=== PATIENT | male | born 1950 | race Caucasian/White ===

== ENCOUNTER → 2023-08-10 12:54 | Outpatient (REF) | payer MEDICARE, SELFPAY | LOC: WOUND 12:54 | PROVIDERS: ATTENDING PHYSICIAN Surgery | DX: T81.31XA Disruption of external operation (surgical) wound, not elsewhere classified, initial encounter (principal); L97.112 Non-pressure chronic ulcer of right thigh with fat layer exposed; E11.42 Type 2 diabetes mellitus with diabetic polyneuropathy; N18.9 Chronic kidney disease, unspecified; I50.9 Heart failure, unspecified; I13.0 Hypertensive heart and chronic kidney disease with heart failure and stage 1 through stage 4 chronic kidney disease, or unspecified chronic kidney disease; M79.7 Fibromyalgia; X58.XXXA Exposure to other specified factors, initial encounter; E11.22 Type 2 diabetes mellitus with diabetic chronic kidney disease | CPT/HCPCS: 11042; 99204 ==

== ENCOUNTER → 2023-08-19 09:54 | Outpatient (REF) | payer MEDICARE, SELFPAY | LOC: WOUND 09:54 | PROVIDERS: ATTENDING PHYSICIAN Surgery | DX: T81.31XA Disruption of external operation (surgical) wound, not elsewhere classified, initial encounter (principal); L97.112 Non-pressure chronic ulcer of right thigh with fat layer exposed; E11.9 Type 2 diabetes mellitus without complications; E11.42 Type 2 diabetes mellitus with diabetic polyneuropathy; N18.9 Chronic kidney disease, unspecified; I50.9 Heart failure, unspecified; E08.40 Diabetes mellitus due to underlying condition with diabetic neuropathy, unspecified; I13.0 Hypertensive heart and chronic kidney disease with heart failure and stage 1 through stage 4 chronic kidney disease, or unspecified chronic kidney disease; M79.7 Fibromyalgia; X58.XXXA Exposure to other specified factors, initial encounter; Y83.8 Other surgical procedures as the cause of abnormal reaction of the patient, or of later complication, without mention of misadventure at the time of the procedure | CPT/HCPCS: 11042 ==

== ENCOUNTER → 2023-09-02 10:38 | Outpatient (REF) | payer MEDICARE, SELFPAY | LOC: WOUND 10:38 | PROVIDERS: ATTENDING PHYSICIAN Surgery | DX: T81.31XA Disruption of external operation (surgical) wound, not elsewhere classified, initial encounter (principal); Y83.8 Other surgical procedures as the cause of abnormal reaction of the patient, or of later complication, without mention of misadventure at the time of the procedure; L97.112 Non-pressure chronic ulcer of right thigh with fat layer exposed; E11.9 Type 2 diabetes mellitus without complications; E11.42 Type 2 diabetes mellitus with diabetic polyneuropathy; N18.9 Chronic kidney disease, unspecified; I50.9 Heart failure, unspecified; E08.40 Diabetes mellitus due to underlying condition with diabetic neuropathy, unspecified; I13.0 Hypertensive heart and chronic kidney disease with heart failure and stage 1 through stage 4 chronic kidney disease, or unspecified chronic kidney disease; M79.7 Fibromyalgia | CPT/HCPCS: 11042 ==

== ENCOUNTER → 2023-09-16 11:10 | Outpatient (REF) | payer MEDICARE, SELFPAY | LOC: WOUND 11:10 | PROVIDERS: ATTENDING PHYSICIAN Surgery | DX: T81.31XA Disruption of external operation (surgical) wound, not elsewhere classified, initial encounter (principal); L97.112 Non-pressure chronic ulcer of right thigh with fat layer exposed; E11.42 Type 2 diabetes mellitus with diabetic polyneuropathy; N18.9 Chronic kidney disease, unspecified; I50.9 Heart failure, unspecified; I13.0 Hypertensive heart and chronic kidney disease with heart failure and stage 1 through stage 4 chronic kidney disease, or unspecified chronic kidney disease; M79.7 Fibromyalgia; Y83.8 Other surgical procedures as the cause of abnormal reaction of the patient, or of later complication, without mention of misadventure at the time of the procedure | CPT/HCPCS: 11042 ==

== ENCOUNTER → 2023-10-08 09:34 | Outpatient (REF) | payer MEDICARE, SELFPAY | LOC: WOUND 09:34 | PROVIDERS: ATTENDING PHYSICIAN Surgery | DX: T81.31XA Disruption of external operation (surgical) wound, not elsewhere classified, initial encounter (principal); L97.112 Non-pressure chronic ulcer of right thigh with fat layer exposed; E11.42 Type 2 diabetes mellitus with diabetic polyneuropathy; N18.9 Chronic kidney disease, unspecified; I50.9 Heart failure, unspecified; I13.0 Hypertensive heart and chronic kidney disease with heart failure and stage 1 through stage 4 chronic kidney disease, or unspecified chronic kidney disease; M79.7 Fibromyalgia | CPT/HCPCS: 11042 ==

== ENCOUNTER → 2023-11-04 10:42 | Outpatient (REF) | payer MEDICARE, SELFPAY | LOC: WOUND 10:42 | PROVIDERS: ATTENDING PHYSICIAN Surgery | DX: T81.31XA Disruption of external operation (surgical) wound, not elsewhere classified, initial encounter (principal); Y83.8 Other surgical procedures as the cause of abnormal reaction of the patient, or of later complication, without mention of misadventure at the time of the procedure; L97.112 Non-pressure chronic ulcer of right thigh with fat layer exposed; E11.42 Type 2 diabetes mellitus with diabetic polyneuropathy; N18.9 Chronic kidney disease, unspecified; I50.9 Heart failure, unspecified; I13.0 Hypertensive heart and chronic kidney disease with heart failure and stage 1 through stage 4 chronic kidney disease, or unspecified chronic kidney disease; M79.7 Fibromyalgia; E11.22 Type 2 diabetes mellitus with diabetic chronic kidney disease | CPT/HCPCS: 11042 ==

== ENCOUNTER → 2023-12-07 10:05 | Outpatient (REF) | payer MEDICARE, SELFPAY | LOC: WOUND 10:05 | PROVIDERS: ATTENDING PHYSICIAN Surgery | DX: T81.31XA Disruption of external operation (surgical) wound, not elsewhere classified, initial encounter (principal); L97.112 Non-pressure chronic ulcer of right thigh with fat layer exposed; N18.9 Chronic kidney disease, unspecified; I50.9 Heart failure, unspecified; I13.0 Hypertensive heart and chronic kidney disease with heart failure and stage 1 through stage 4 chronic kidney disease, or unspecified chronic kidney disease; M79.7 Fibromyalgia; Y83.8 Other surgical procedures as the cause of abnormal reaction of the patient, or of later complication, without mention of misadventure at the time of the procedure; E11.29 Type 2 diabetes mellitus with other diabetic kidney complication; E11.42 Type 2 diabetes mellitus with diabetic polyneuropathy | CPT/HCPCS: 99213 ==

== ENCOUNTER → 2024-04-05 12:38 | Outpatient (REF) | payer MEDICARE, OTHER, SELFPAY | LOC: DHVS 12:38 | PROVIDERS: ATTENDING PHYSICIAN Registered Nurse; FAMILY PHYSICIAN Internal Medicine | DX: I73.9 Peripheral vascular disease, unspecified (principal); Z89.619 Acquired absence of unspecified leg above knee | CPT/HCPCS: 76770; 93922; 93925 ==

== ENCOUNTER → 2024-06-06 11:00 | Outpatient (REF) | payer MEDICARE, OTHER, SELFPAY | LOC: RCS 11:00 | PROVIDERS: ATTENDING PHYSICIAN Internal Medicine Cardiovascular Disease; FAMILY PHYSICIAN Internal Medicine | DX: I50.9 Heart failure, unspecified (principal) | CPT/HCPCS: 93306 ==

== ENCOUNTER → 2024-09-29 12:42 | Outpatient (REF) | payer MEDICARE, OTHER, SELFPAY | LOC: RAD 12:42 | PROVIDERS: ATTENDING PHYSICIAN Registered Nurse | DX: I73.9 Peripheral vascular disease, unspecified (principal); Z89.619 Acquired absence of unspecified leg above knee | CPT/HCPCS: 93922; 93925 ==

== ENCOUNTER 2024-11-10 23:07 | Inpatient (IN) | payer MEDICARE, OTHER, SELFPAY ==
[2024-11-10 19:22] VITALS: BP 101/48; BMI 37.9
[2024-11-10 20:00] VITALS: BP 96/46
[2024-11-10 20:00] LABS: % Basophils 0.3 % (0-2); % Eosinophils 0.2 % (0-6); % Immature Granulocytes 0.5 % (0-0.5); % Lymphocytes 6.6 % (20.5-51.1); % Monocytes 11.2 % (1.7-9.3); % Neutrophils 81.2 % (42.2-75.2); Absolute Immature Granulocytes 0.1 10^3/uL (0-0.05); Absolute Lymphocytes 0.9 10^3/uL (1.2-3.4); Absolute Monocytes 1.5 10^3/uL (0.1-0.6); Hematocrit 37.8 % (39.0-52.0); Mean Corp Hgb Conc. 34.4 g/dL (33.0-37.0); Mean Corpuscular Hgb 26.8 pg (27.0-31.0); Mean Corpuscular Volume 77.9 fL (80.0-94.0); Mean Platelet Volume 9.6 fL (7.4-10.4); Nucleated Red Blood Cells % 0 % (-); Platelet Count 134 10^3/uL (130-400); Red Blood Cell Count 4.85 10^6/uL (4.70-6.10); Red Cell Dist. Width 15.9 % (11.5-14.5); White Blood Cell Count 13.5 10^3/uL (4.8-10.8)
--- NOTE | 2024-11-10 20:00 | ED.GENMED ---
History of Present Illness
General
Chief Complaint: Fever
Source: patient and records
Time Seen by Provider: 11/10/24 19:47
History of Present Illness
History of Present Illness:
This patient is a 74-year-old male who presents with reported fever and weakness since last night. The patient states that he feels generally weak, and does note a new cough. Of note, patient has mild hypoxia here relieved with nasal cannula. He
denies sore throat, rhinorrhea. He does note that he has had poor appetite today, and had vomiting early this morning. He denies specific abdominal pain, back pain, neck pain, photophobia. He was noted to be incontinent of stool upon arrival
here, no blood noted. Patient denies urinary symptoms, dyspnea, chest pain, headache. He does note that he gets cramps in the left posterior thigh area, comes and goes without specific provoking or relieving factors.
Past History
Past History
ED Past Medical History: Other (COPD, hypercholesterolemia, diabetes)
ED Past Surgical History: Other (Right AKA)
Social History
Tobacco: Non-smoker
Alcohol: None
Drug: None
Living: long-term
Phy Exam
Physical Exam
Physical Exam:
GENERAL: Alert , in no apparent distress, very hard of hearing
EYE: pupils equal and reactive, no objective photophobia
NECK: Supple, no significant adenopathy.
ENT: o/p clr, mm dry
CARDIAC: Regular rate and rhythm .
LUNGS: Equal but decreased breath sounds bilaterally, no acute respiratory distress, no wheezes/rales/rhonchi noted
ABDOMEN: Soft, without focal tenderness, no r/g, no cvat
NEUROLOGICAL: Alert and oriented, no focal neuro deficits
SKIN: Warm and dry, skin intact.
MUSCULOSKELETAL: Left lower extremity 1+ edema, well perfused. Right AKA
PSYCH: Normal and appropriate interaction.
Sepsis
Sepsis Screening
Sepsis Assessment: Sepsis
Sepsis Screen
Sepsis Screen: Sepsis
Date: 11/16/24
Time: 09:08
Course
Orders/Labs/Results
Orders:
Orders
11/10/24 Breakfast
1800 calorie (15 carb) Diabetic
At Your Request: Limited Participation
Does patient need a safe tray?: No
11/10/24 19:49
Cardiac Monitoring- Treatment ONCE
Pulse Ox/cont/shift [RESP] Urgent
Quantity: 1
11/10/24 19:50
Electrocardiogram (*1) Urgent
Reason for Study: Other
Other Reason for Exam: sepsis
EKG- Treatment ONCE
CR Chest - 2 Views Urgent
Comment:
Reason For Exam: fever
11/10/24 19:53
Complete Blood Count/With Diff Urgent
Comprehensive Metabolic Panel Urgent
Lactic Acid Q4H
Comment: CANCEL 2nd LACTIC ACID IF 1st LACTIC ACID IS LESS THAN 2
NT-proBNP Urgent
Comment: ADD ON
Troponin I Urgent
Blood Culture Q30M
TALI Source: Blood/Venous
Specimen Description:
11/10/24 19:59
0.9% Sodium Chloride 500 ml [Nss] 500 ml IV BOLUS
11/10/24 20:33
COVID-19 Antigen Urgent
Source: Nasal Swab
Urinalysis Reflex To Culture Urgent
Date Specimen was Collected: 11/10/24
Time Specimen was Collected: 20:31
Urine Microscopic Reflex Cult Urgent
Blood Culture Q30M
TALI Source: Blood/Venous
Specimen Description:
Influenza A+B Rapid Molecular Urgent
TALI Source: Nasal Swab
Specimen Description:
Urine Culture Urgent
TALI Source: U
Specimen Description:
Date Specimen was Collected: 11/10/24
Time Specimen was Collected: 20:31
11/10/24 20:43
Add On- LAB Urgent
Tests Added?: BNP
11/10/24 20:49
Acetaminophen [Tylenol] 650 mg .ROUTE .STK-MED ONE
11/10/24 20:50
Acetaminophen [Tylenol] 650 mg PO NOW STA
11/10/24 21:33
CefTRIAXone [Rocephin] 1,000 mg IV NOW STA
US Kidneys and US Bladder [US Renal With Bladder] Urgent
Comment:
Reason For Exam: UTI, N/V
11/10/24 22:19
Potassium Chloride 10% Elixir [KCl Elixir] 40 meq PO NOW STA
11/10/24 22:24
Admit/Transfer Patient As Directed
Co-Sign Provider:
Level of Care: Inpatient admission
Assign to:: Telemetry
Physician / Group: juana lima
Diagnosis: urosepsis
Reason for Telemetry: Arrhythmia
Date to Stop Telemetry: 11/13/24
Time to Stop Telemetry: 11:00
Reason for Hospitalization: urosepsis
Expected length of stay greater than two midnights?: Yes
ELOS- Estimated Length of Stay in days: 3
I certify the patient meets the requirements for IP care: Yes
PRN Pain Medication Management As Directed
May give lesser potent ordered pain med per pt: Yes
preference::
Protocol:: Medication orders for pain may be administered in a
manner that supports deferring to patient preference
when the pt is:
- Requesting an ordered lesser potent pain medication.
Least to most potent pain medications are defined
as: acetaminophen < NSAID < tramadol < opioids
(morphine, oxycodone, hydromorphone).
- Requesting a lesser dose of the same medication IF
ORDERED.
- Requesting a less intrusive route of administration
if both routes are prescribed by the provider (PO <
IV).
11/10/24 22:26
Code Status As Directed
Resuscitation Status: Full Code
11/10/24 23:00
Flush (0.9% Sodium Chloride) [Flush (Nss)] See Dose Instructions IV PER PROTOCOL
11/10/24 23:09
0.9% Sodium Chloride 1000 ml [Nss] 1,000 ml IV 60 mls/hr
Acetaminophen [Tylenol] 650 mg PO Q4HPRN PRN
Bisacodyl [Dulcolax] 10 mg RECTAL [id number] PRN
Dextrose 50%-Water [Dextrose 50% Syringe] 12.5 grams IV [id number] PRN
Docusate W/Senna [Senokot-S] 1 tablet PO BIDPRN PRN
Glucagon [GlucaGen] 1 mg IM PRN PRN
Ipratropium/Albuterol Sulfate [Duoneb] 3 ml INH R Q4HPRN PRN
Polyethylene Glycol Powder [Miralax] 17 grams PO DAILYPRN PRN
11/10/24 23:09
Activity As Directed
Activity Level: As Tolerated
Bedside Glucose Monitoring As Directed
Frequency: AC&HS
Additional Instructions:: Change to q6h if pt on TPN, tube feeding or not eating
Intake/ Output As Directed
Frequency: Per unit guidelines
Vital Signs As Directed
Frequency: Per unit guidelines
Weight As Directed
Frequency: Daily
O2 Therapy [RESP] Routine
Titrate/Wean O2 to maintain O2 sat greater than (%): 92
DX Deep Vein Thrombosis Video Routine
11/10/24 23:25
Oxycodone [Roxicodone] 5 mg PO Q4HPRN PRN
11/11/24 07:10
Basic Metabolic Panel IN AM
Complete Blood Count/No Diff IN AM
Glycohemoglobin (HgbA1c) IN AM
11/11/24 07:30
Insulin Aspart Corrective Low [Novolog Flexpen-Low Resistance] See Protocol SC AC
11/11/24 08:00
Aspirin Low Dose EC [Aspir Low (Enteric Coated)] 81 mg PO DAILY
Budesonide/Formoterol 160/4.5 [Symbicort 160/4.5 Mcg Inhaler] 2 puff INH R DAILY
Cilostazol [Pletal] 100 mg PO BID
Duloxetine Delayed Release [Cymbalta Delayed Release] 30 mg PO BID
Famotidine [Pepcid] 20 mg PO DAILY
Gabapentin [Neurontin] 300 mg PO TID
Heparin 5,000 units SC Q12
Tamsulosin [Flomax] 0.4 mg PO DAILY
lubiprostone [Amitiza] See Dose Instructions PO BID
11/11/24 22:00
Atorvastatin [Lipitor] 80 mg PO HS
CefTRIAXone [Rocephin] 1,000 mg IV Q24H
Melatonin 6 mg PO HS
11/13/24 11:00
DC Protocol for Telemetry ONCE
Abnormal Lab Results
11/10/24 11/10/24
19:53 20:33
WBC 13.5 H 10^3/uL
(4.8-10.8)
Hct 37.8 L %
(39.0-52.0)
MCV 77.9 L fL
(80.0-94.0)
MCH 26.8 L pg
(27.0-31.0)
RDW 15.9 H %
(11.5-14.5)
Abs Immat Gran (auto) 0.1 H 10^3/uL
(0-0.05)
Absolute Neuts (auto) 11.0 H 10^3/uL
(1.4-6.5)
Absolute Lymphs (auto) 0.9 L 10^3/uL
(1.2-3.4)
Absolute Monos (auto) 1.5 H 10^3/uL
(0.1-0.6)
Neutrophils % 81.2 H %
(42.2-75.2)
Lymphocytes % 6.6 L %
(20.5-51.1)
Monocytes % 11.2 H %
(1.7-9.3)
Sodium 134 L mmol/L
(135-145)
Potassium 3.4 L mmol/L
(3.5-5.1)
BUN 32 H mg/dl
(9-20)
Creatinine 1.9 H mg/dL
(0.7-1.3)
Glucose 135 H mg/dl
(70-99)
Ur Occult Blood Reflex 4+ A
(Negative)
Leukocyte Esterase Rfl 3+ A
(Negative)
Urine WBC (Reflex) >100 A /HPF
(0-5)
Urine Bacteria (Reflex) Many A
(Negative)
Urine Albumin (Reflex) 3+ A
(Neg - Trace)
11/10/24 19:53
11/10/24 19:53
Vital Signs
Initial and Last Documented VS:
Initial Vital Signs
Temp Pulse Resp BP Pulse Ox
102 F H 97 24 101/48 89
11/10/24 19:22 11/10/24 19:22 11/10/24 19:22 11/10/24 19:22 11/10/24 19:22
Last Documented Vital Signs
Temp Pulse Resp BP Pulse Ox
98.7 F 92 19 140/77 95
11/15/24 11:00 11/15/24 11:00 11/15/24 11:00 11/15/24 11:00 11/15/24 11:00
*Pulse Oximetry
SaO2: 93
Nasal Cannula flow liters per minute: 1
Oxygen Mode of Delivery: Room air
*Critical Care Note
Total Time (30-74mins, 75-104mins- exclusive of procedures): Not Applicable
Update Note
Update Note:
Patient presents to the Emergency Department with ___fever weakness cough vomiting
Number and Complexity of Problems Addressed at the Encounter
� Chronic conditions affecting care:
� Acute Exacerbation and/or Progression of Chronic Illness:
� Differential Diagnosis includes: But not limited to COVID, flu, pneumonia, UTI, etc. etc. etc.
Amount and/or Complexity of Data to be Reviewed and Analyzed
� I performed an independent evaluation of and my interpretation is:
EKG: Read by me, normal sinus rhythm, LAD, nonspecific T wave flattening, no acute ischemia
CT:
Xrays: Increased vascular interstitial markings mixed with diffuse ground-glass opacity in both lungs suggesting MILD INTERSTITIAL and ALVEOLAR CARDIOGENIC PULMONARY EDEMA. Viral or atypical bacterial pneumonia is considered
less likely.
2. Mild cardiomegaly.
3. Mildly decreased bilateral lung volumes.
Laboratory Studies: Leukocytosis, renal insufficiency no prior for comparison, UTI
Other:
� Review of other/old records reveals: None available
� Clinical information was obtained by an independent historian:
� Prescriptions/Medications Considered but not given:
� Further testing considered but not performed:
Risk of Complications and/or Morbidity or Mortality of Patient Management
� Social determinants of health affecting care:
� Discussion with other providers (PCP, Hospitalists, Consultants, etc):
� Escalation of care including admission/observation vs risk of discharge considered: 9:35 PM patient with fever, tachycardia, UTI meeting sepsis criteria. Blood pressure stable. Ultrasound ordered to rule out obstruction
although patient does not describe flank pain, etc. Mild hypoxia with the possibility of pulmonary edema via chest x-ray, will limit IV fluids in the context of patient's heart failure. BNP pending. Case to be discussed with hospitalist for
admission
ED Attending Note
-
Portions of this chart may have been created with voice recognition software.� Occasional wrong word or��sound alike� substitutions may have occurred due to the inherent limitations of voice recognition software.
Discharge Plan
Departure
Patient Disposition: Admit
Date of Disposition: 11/10/24
Time of Disposition: 21:37
Presentation/result/management discussed w/ accepting MD/DO: Hospitalist
Condition: Fair
Discharge Problem:
urosepsis
Interventions
Interventions:
*Risk Screen - Suicide Last Done: 11/10/24 19:22
*General Assessment Last Done: 11/10/24 19:22
*Neglect/Abuse Screening Last Done: 11/10/24 19:22
*ED- Fall Risk Assessment Last Done: 11/10/24 19:22
*ED COVID-19 Vaccine History Last Done: 11/10/24 19:22
*Nursing Disposition Last Done: 11/10/24 22:53
ED- Neurological Assessment Last Done: 11/10/24 20:52
ED-Skin Assessment Last Done: 11/10/24 20:52
Discharge Date and Time
Discharge Date/Time: 11/10/24 23:00
[2024-11-10] MEDS: NSS 500 IV (20:10)
[2024-11-10 20:11] LABS: Lactic Acid 1.4 mmol/L (0.7-2.0)
[2024-11-10 20:13] LABS: ALT (SGPT) 20 U/L (0-50); AST (SGOT) 31 U/L (17-59); Albumin 3.7 g/dl (3.5-5.0); Alkaline Phosphatase 77 U/L (38-126); Blood Urea Nitrogen 32 mg/dl (9-20); Calcium 9.1 mg/dl (8.4-10.2); Carbon Dioxide 23 mmol/L (22-30); Chloride 104 mmol/L (98-107); Estimated Creatinine Clearance 45 ml/min; Glucose 135 mg/dl (70-99); Potassium 3.4 mmol/L (3.5-5.1); Sodium 134 mmol/L (135-145); Total Bilirubin 1.3 mg/dl (0.2-1.3); Total Protein 6.5 g/dl (6.3-8.2); eGFR 36.33
[2024-11-10 20:25] LABS: Troponin I 0.028 ng/ml
[2024-11-10 20:44] LABS: Urine Albumin 3+ (Neg - Trace); Urine Bilirubin Negative (Negative); Urine Character Clear (Clear); Urine Color Yellow; Urine Glucose Negative (Negative); Urine Ketone Negative (Negative); Urine Leukocyte 3+ (Negative); Urine Nitrite Negative (Negative); Urine Occult Blood 4+ (Negative); Urine Specific Gravity 1.015 (<1.030); Urine Urobilinogen 1+ (Neg - 1+)
[2024-11-10] MEDS: TYLENOL 650 MG PO (20:50)
[2024-11-10 21:00] VITALS: BP 118/61
[2024-11-10 21:03] LABS: COVID-19 Antigen Negative (Negative)
[2024-11-10 21:16] LABS: Urine White Cell >100 /HPF (0-5)
[2024-11-10 21:17] LABS: Urine Bacteria Many (Negative)
[2024-11-10 21:33] LABS: NT-proBNP 1330 pg/ml
[2024-11-10] MEDS: ROCEPHIN 1000 MG IV (21:36)
[2024-11-10 22:00] VITALS: BP 113/61
--- NOTE | 2024-11-10 22:00 | W.PN.UPDATE ---
Update Note
Progress Note Update
This note serves as an addendum to the H&P by residential team leader MIN Sophia BRADSHAW
HPI
74M Diabetic, HTN, COPD seen at ER for fever and weakness since last night.
- he feels generally weak, and new cough
- mild hypoxia here relieved with nasal cannula.
- poor appetite today
- vomiting early this morning.
- incontinent of stool upon arrival here, no blood noted.
ROS
- denies sore throat, rhinorrhea.
- denies specific abdominal pain, back pain, neck pain, photophobia.
- incontinent of stool upon arrival here, no blood noted.
- denies urinary symptoms, dyspnea, chest pain, headache.
PHX
Reviewed VS:
Significant VS
11/10/24
19:22
Temp 102 F H
Pulse 97
Resp Rate 24
Blood pressure 101/48
SaO2 89
PE
Morbidly obese
Gen: not toxic , T 102
HEENT: very [place]
Neck: supple
Lungs: CTA
Cor: RRR
Abdomen: Soft, without focal tenderness,
PIPE LINER: NFND
MS: no edema , AKA with well healed stump
Psych: apprpriate
Significant admission Labs and UA
11/10/24
19:53
WBC 13.5 H
Sodium 134 L
Potassium 3.4 L
BUN 32 H
Creatinine 1.9 H
eGFR 36.33
Troponin I 0.028
Mar-P-Cponltausrl Pept 1330
11/10/24
20:33
Urine Nitrite (Reflex) Negative
Leukocyte Esterase Rfl 3+ A
Urine Bacteria (Reflex) Many A
CXR
1. Increased vascular interstitial markings mixed with diffuse ground-glass opacity in both lungs suggesting MILD INTERSTITIAL and ALVEOLAR CARDIOGENIC PULMONARY EDEMA.
Viral or atypical bacterial pneumonia is considered less likely.
2. Mild cardiomegaly.
3. Mildly decreased bilateral lung volumes.
NO PRIOR hospitalist admission:
- Obtain records for PCP
ASSESSMENT & PLAN
Sepsis due to UTI
Relative hypotension due to sepsis
Associated hi grade fever, Leucocytosis and elevated pro BNP
- Pending US KUB
- s/p septic IN NS 1 L then 60/H NS
- agree with empiric IV CFTZ
- Hold Norvasc and PO Lasix for now due to relative hypotension due to sepsis
- f/u UCx and BCx
- FU VSS
CXR suggest mild interstitial and Pul edema
Mild Hypoxic RI on NCO2 support
HX CHF - type unknown
Elevated pro BNP
- ECHO in AM
- Hold PO Lasix due to relative hypotension due to sepsis
- daily Wt
BRIAN
HX CKD unspecified
- IVF and f/u Cr
- Pending US KUB
- Hold PO Lasix for now due to relative hypotension due to sepsis
IDDM with Neuropathy
- c/w 50 % of RED HAT LINUX ADMINISTRATOR Lantus
- add ISS low
- c/w Gabapentin
Suspect Prior HX CAD per Med List
- HLD
- c/w ASA, Cilostazol
- on hi intensity atorvastatin
S/p AKA ? PAD
HX COPD
- c/w RED HAT LINUX ADMINISTRATOR Symbicort
HX GERD
- switch to PO H2B in place of PO PPI due to risk of CDAD
Morbidly obese
Suspect PEGGY
DVT Px: SQH
Full code
IP TLM
--- NOTE | 2024-11-10 22:04 | HPS.HSE ---
Family Physician
-
Family Physician: NOT KNOW UNKNOWN - PT DOES
Chief Complaint
-
fever
History of Present Illness
74-year-old male with past medical history with COPD, hyperlipidemia, type 2 diabetes CHF, peripheral artery disease presented to us with fever and generalized weakness since last night, usp.patient stated he vomited once today .he has been
coughing.denied chest pain or short of breath. Patient denied any headache, dizzy or syncope. Denied abdominal pain or diarrhea. Patient denied dysuria hematuria
Upon arrival he was noted in urosepsis as well as pulmonary edema. Patient received a dose of ceftriaxone Tylenol, normal saline in ER. Admitted for further management
Medical History
Past Medical History
Past Medical History: Reports Other
Additional Past Medical History:
COPD
- Cholesteremia
Diabetes
Anemia
Aphasia
COPD
Neuropathy fibromyalgia
Anxiety
Morbid obesity
Depression
CKD
Hypertension GERD
Heart failure
Generalized weakness
Peripheral vascular disease
Urinary tract infection
Past Surgical History: Reports Other
Additional Past Surgical History:
Right AKA
Social History
Tobacco: Non-smoker
Alcohol: None
Drug: None
Living: Longterm
Family History
Family History: Not pertinent
Allergies / Home Medications
Allergies reflects when Allergies were last updated in [facility].
Home Medications with original date entered in [facility]
Allergy/Medication List:
Allergies
Allergy/AdvReac Type Severity Reaction Status Date / Time
No Known Allergies Allergy Unverified 11/10/24 20:06
Home Medications
acetaminophen 325 mg tablet (Tylenol) 325 mg PO Q8HPRN PRN mild pain 11/10/24
acetaminophen 325 mg tablet (Tylenol) 650 mg PO Q4H PRN mild pain/temp>100F 11/10/24
acetaminophen 325 mg tablet (Tylenol) 650 mg PO Q6HPRN PRN mild pain 11/10/24
albuterol sulfate 90 mcg/actuation aerosol inhaler 2 puff inhalation R Q4HPRN PRN sob/wheezing 11/10/24
amlodipine 10 mg tablet 10 mg PO DAILY 11/10/24
aspirin 81 mg tablet,delayed release 81 mg PO DAILY 11/10/24
atorvastatin 80 mg tablet 80 mg PO HS 11/10/24
bisacodyl 10 mg rectal suppository (Dulcolax (bisacodyl)) 10 mg SC DAILY PRN if no BM by morning of 4th day 11/10/24
budesonide-formoterol HFA 160 mcg-4.5 mcg/actuation aerosol inhaler (Symbicort) 2 puff inhalation R DAILY 11/10/24
cilostazol 100 mg tablet 100 mg PO BID 11/10/24
duloxetine 30 mg capsule,delayed release 30 mg PO BID 11/10/24
furosemide 40 mg tablet 40 mg PO DAILY 11/10/24
gabapentin 600 mg tablet 600 mg PO TID 11/10/24
guaifenesin 100 mg/5 mL oral liquid 200 mg PO Q6HPRN PRN cough 11/10/24
insulin aspart U-100 100 unit/mL subcutaneous solution (Novolog U-100 Insulin aspart) 1 sliding scale dose SC DIRECTED 11/10/24
insulin glargine 100 unit/mL (3 mL) subcutaneous pen (Lantus Solostar U-100 Insulin) 18 unit SC HS 11/10/24
loperamide 2 mg capsule 2 mg PO DIRECTED PRN loose stool 11/10/24
loratadine 10 mg tablet 10 mg PO DAILY 11/10/24
lubiprostone 8 mcg capsule (Amitiza) 8 mcg PO BID 11/10/24
magnesium hydroxide 400 mg/5 mL oral suspension (Milk of Magnesia) 30 ml PO [id number] PRN if no BM in 3 days 11/10/24
melatonin 3 mg tablet 6 mg PO HS 11/10/24
metoprolol succinate 50 mg tablet,extended release 24 hr 50 mg PO DAILY 11/10/24
nitroglycerin 0.3 mg sublingual tablet 0.3 mg sublingual Q5-15M PRN chest pain 11/10/24
omeprazole 20 mg tablet,delayed release 20 mg PO DAILY 11/10/24
ondansetron HCl 4 mg tablet 4 mg PO Q8H PRN nausea/vomiting 11/10/24
oxycodone 5 mg capsule 5 mg PO Q4H PRN moderate-severe pain 11/10/24
tamsulosin 0.4 mg capsule (Flomax) 0.4 mg PO DAILY 11/10/24
therapeutic multivitamin 1 tab PO DAILY 11/10/24
tirzepatide 2.5 mg/0.5 mL subcutaneous pen injector (Mounjaro) 2.5 mg SC WE 11/10/24
urea 10 % topical cream 1 applic topical HS apply to LLE 11/10/24
Review of Systems
-
Constitutional: Reports Fever, Fatigue and Chills
EENT: Reports No Symptoms
Respiratory: Reports Cough
Cardiac: Reports No Symptoms
Abdomen/GI: Reports No Symptoms
: Reports No Symptoms
Musculoskeletal: Reports No Symptoms
Skin: Reports No Symptoms
Neurological: Reports No Symptoms
Endocrine: Reports No Symptoms
Hematologic/Lymphatic: Reports No Symptoms
Psych: Reports No Symptoms
Physical Exam
Vital Signs
Vital Signs
Temp Pulse Resp BP Pulse Ox
102 F H 89 31 113/61 95
11/10/24 19:22 11/10/24 22:00 11/10/24 22:00 11/10/24 22:00 11/10/24 22:00
Physical Exam
General: Well Developed, Well Nourished and No Apparent Distress
HEENT: NormoCephalic, Moist mucous membranes and Atraumatic
Respiratory: Clear
Cardiac: S1/S2 and Regular Rhythm; No Murmur or Rub
GI: Soft, Non Tender, Non Distended and Normal Bowel Sounds; No Organomegaly
Rectal: Deferred by Provider
Musculoskeletal: No Clubbing, No Cyanosis and No Edema
Skin: Other; No Rash
Neuro: AO x 3 and Nonfocal/grossly intact
Psych: Calm
Laboratory Results
-
11/10/24 19:53
11/10/24 19:53
Laboratory Results
Lactic Acid 1.4 mmol/L (0.7-2.0) 11/10/24 19:53
Total Bilirubin 1.3 mg/dl (0.2-1.3) 11/10/24:53
AST 31 U/L (17-59) 11/10/24:53
ALT 20 U/L (0-50) 11/10/24:53
Alkaline Phosphatase 77 U/L (38-126) 11/10/24:53
Troponin I 0.028 ng/ml 11/10/24 19:53
Data Reviewed
-
Diagnostic Radiology: Report Reviewed by me
Lab Data: Labs Reviewed by me
Impression/Plan
-
# Urosepsis
- Sepsis as evidenced by WBC 13.5, temp 102
- Ceftriaxone continued
- Blood and urine culture pending
- Tylenol as needed for fever or pain
- Fluids continued
# Acute hypoxic respiratory failure likely secondary to pulmonary edema
#possible COPD exacerbation
- Chest x-ray with impression increased vascular interstitial markings mixed with diffuse ground-glass opacity in both lungs suggesting MILD INTERSTITIAL and ALVEOLAR CARDIOGENIC PULMONARY EDEMA. Viral or atypical bacterial pneumonia is considered
less likely. Mild cardiomegaly.
- Continue supplemental oxygen to keep sat greater than 95, wean as tolerated
- Hold Lasix
-strict I &O, daily weight
-nebs continued
# Hypokalemia likely from nausea and vomiting
- K3.4
- Oral KCl
- BMP in a.m.
# CKD stage specified
- Creatinine 1.9
- Ultrasound of kidneys pending
- Continue to monitor
# Essential hypertension
- Patient hypotensive in ER
- Will hold Lasix and Norvasc and metoprolol
# GERD
- PPI continue
# Hyperlipidemia
- Statin continued
# History of peripheral artery disease
# History of right AKA
- Cilostazol continued
# Depression/anxiety
- Duloxetine continued
# Peripheral neuropathy
- Gabapentin continued
- Oxycodone continue
# BPH
- Flomax continue
# Type 2 diabetes
- Sliding scale
- Glargine 10 units at bedtime
# DVT prophylaxis
- Heparin subcu
# CODE STATUS
Full code-
[2024-11-10 23:15] VITALS: BP 122/53
[2024-11-10 23:16] VITALS: BMI 37.3
[2024-11-10 23:29] LABS: Glucose - Point of Care 122 mg/dl (70-99)
[2024-11-10] MEDS: NSS 1000 IV (23:31)
[2024-11-10] MEDS: LANTUS 0.09 UNITS SC (23:32)
[2024-11-11] VITALS (12 sets, daily range): BP systolic 100–148; BP diastolic 50–86; PULSE 85; O2SAT 98; BMI 37.3
[2024-11-11] MEDS: KCL 270 MEQ IV (00:47)
--- NOTE | 2024-11-11 00:55 | PTCARENOTE ---
Pt received from ED via stretcher. Pulled over to bed w/o incident. AAOx3, forgetful, NOORVIK, very drowsy. Tele - SR. Unable to participate w/admission questions, information obtained from NH transfer sheet. Full physical assessment documented
(refer to worklist). Oriented to surroundings, bed alarm place for safety. Sacrum pink, excoriation/redness to groin/scrotum, small abrasion to LLE w/PVDish discoloration. Pt ordered KCl elixir. Unable to stay awake long enough to drink safely.
AUXILIARY POWER EQUIPMENT OPERATOR covering house contacted, electronic orders received for IV KCl (refer to MAR). #18 RAC w/NSS at 60 mL/hr infusing w/o complication. Call moi w/in reach, safe environment maintained.
[2024-11-11] MEDS: OFIRMEV 100 IV (03:49)
--- NOTE | 2024-11-11 04:41 | PTCARENOTE ---
Pt w/temp 102.1. Unable to stay awake to take PO tylenol. CLINICAL QUALITY MANAGER covering house contacted, electronic orders received for IV ofirmev (refer to JUL). Repeat temp 103.0. Ice packs place under bilateral axilla, electronic order obtained.
--- NOTE | 2024-11-11 05:54 | PTCARENOTE ---
Pt w/no void. Bladder scan = 555 mL. CHEMICAL PROCESSING SUPERVISOR covering contacted, electronic orders received for bladder scan/straight cath per algorithm. Straight cathed using sterile technique for 600 mL tea colored, cloudy urine. Pt tolerated.
[2024-11-11 07:16] LABS: Glucose - Point of Care 99 mg/dl (70-99)
--- NOTE | 2024-11-11 07:40 | W.PN.HOSP.TC ---
Today's Communication/Plan
-
Monitor closely for any respiratory deterioration -- low threshold to stop IV fluids (given for diarrhea, soft BPs and significant infection) since patient also has CHF
Continue antibiotics
Continue as needed Tylenol
Continue to monitor in IMU
Assessment / Plan
Assessment / Plan
Physical Exam
General: Well Developed, Well Nourished and No Apparent Distress
HEENT: NormoCephalic, Moist mucous membranes and Atraumatic
Respiratory: Clear
Cardiac: S1/S2 and Regular Rhythm; No Murmur or Rub
GI: Soft, Non Tender, Non Distended and Normal Bowel Sounds; No Organomegaly
Rectal: Deferred by Provider
Musculoskeletal: No Clubbing, No Cyanosis and No Edema
Skin: Other; No Rash
Neuro: AO x 3 and Nonfocal/grossly intact
Psych: Calm
Assessment/Plan
74-year-old male from assisted with past medical history with hyperlipidemia, type 2 diabetes mellitus, CHF and peripheral artery disease, presented with fever and generalized weakness since last night, he also reported vomiting and diarrhea.
#Suspected Complicated UTI
#Sepsis
#Leukocytosis
#Fever
#Gram Negative Bacilli Bacteremia Suspected from Complicated UTI
#Vomiting and Diarrhea
- Transferred to IMU from tele given patient's urosepsis, bacteremia, CHF, soft blood pressures and obesity with possible PEGGY
- Ceftriaxone changed to Cefepime given gram negative bacteremia
- Continue to follow blood cultures
- Follow urine culture
- Continue IV fluids
# Acute hypoxic respiratory failure with RML pneumonia in the setting of Bacteremia and Sepsis
# Vomiting -- possible Aspiration Pneumonia
- Transferred to IMU from tele given patient's urosepsis, bacteremia, CHF, soft blood pressures and obesity with possible PEGGY
- Chest x-ray with possible pulmonary edema as well as pneumonia
- Continue supplemental oxygen to keep sat greater than 90, wean as tolerated
- Hold Lasix given sepsis and soft blood pressures
- Strict I &O, daily weight
-nebs continued
- Patient at risk of worsening respiratory failure requiring noninvasive positive pressure ventilation and maybe intubation (morbid obesity with suspected sleep disordered breathing, with pneumonia, UTI, bacteremia and pulmonary edema)
# Suspected Acute HFpEF
- BNP elevated at 1330, chest x-ray suggestive of pulmonary edema
- Since patient has blood pressures on the lower side, holding off on diuretics.
- Avoid excessive IV fluids
- Echo ordered
- Monitor closely for any respiratory deterioration
#Generalized Weakness
- Suspected secondary to sepsis/bacteremia
# PEGGY
# Concern for Obesity Hypoventilation Syndrome
# COPD is unlikely -- never smoker
# Concern for Asthma
- Patient says he had evaluation for sleep apnea outpatient, but was never on CPAP
- Continue Symbicort and PRN albuterol
- Continue to monitor
#Liquid stools
#Mild Abdominal Pain
- Continue IV fluids but be careful with too much IV fluids given CHF
- Check stool studies
- Follow-up abdominal x-ray
# Hypokalemia likely from vomiting/diarrhea
- Supplement potassium
- Recheck BMP this evening
# BRIAN vs. CKD stage unspecified
- Creatinine 1.9
- Ultrasound of kidneys: no evidence for hydronephrosis in either kidney, moderate chronic bilateral renal disease, mild to moderate diffuse thickening and trabeculation of the urinary bladder wall (either secondary to cystitis or
chronic urinary bladder outlet obstruction).
- Continue to monitor
# Essential hypertension
- Patient hypotensive in ER
- Continue to hold Lasix, Norvasc and Metoprolol
# GERD
- PPI continue
# Hyperlipidemia
- Statin continued
# History of peripheral artery disease
# Right AKA
- Continue Aspirin and High-Intensity Statin
- Cilostazol continued
# Depression/anxiety
- Duloxetine continued
# Peripheral neuropathy
- Gabapentin continued
- Oxycodone continue
# BPH
- Flomax continued
# Type 2 diabetes mellitus
- Low dose Sliding scale
- Glargine resumed at less than home dose
#Morbid Obesity
DVT Prophylaxis: Heparin SUBQ
CODE STATUS: Full Code
Bacteremia and patient at risk of worsening respiratory failure requiring noninvasive positive pressure ventilation and maybe intubation (morbid obesity with suspected sleep disordered breathing, with pneumonia, UTI, bacteremia and pulmonary edema)
is a high risk encounter.
Anticipated Discharge: > 48 hours
Subjective/Interval History
-
Date of Service: November 11, 2024
Patient was seen and examined. He reported that this morning he is feeling better compared to when he came in.
Objective Data
-
Labs:
Laboratory Results
11/10/24 11/11/24
19:53 07:10
WBC 13.5 H Pending
Hgb 13.0 Pending
Hct 37.8 L Pending
Plt Count 134 Pending
Sodium 134 L Pending
Potassium 3.4 L Pending
Chloride 104 Pending
Carbon Dioxide 23 Pending
BUN 32 H Pending
Creatinine 1.9 H Pending
Glucose 135 H Pending
Calcium 9.1 Pending
Total Bilirubin 1.3
AST 31
ALT 20
Alkaline Phosphatase 77
Vital Signs:
Vital Signs
Temp Pulse Resp BP Pulse Ox
100.5 F H 103 28 115/60 97
11/11/24 05:15 11/11/24 03:41 11/11/24 03:41 11/11/24 03:41 11/11/24 03:41
I&O
11/10/24 11/11/24 11/12/24
06:59 06:59 06:59
Intake Total 370 / 370
Output Total 600 / 600
Balance -230 / -230
[2024-11-11] MEDS: SYMBICORT 160/4.5 MCG INHALER 2 PUFF INH (07:43)
[2024-11-11 07:59] LABS: Hematocrit 35.1 % (39.0-52.0); Mean Corp Hgb Conc. 34.2 g/dL (33.0-37.0); Mean Corpuscular Volume 78.9 fL (80.0-94.0); Platelet Count 118 10^3/uL (130-400); Red Blood Cell Count 4.45 10^6/uL (4.70-6.10); Red Cell Dist. Width 16.1 % (11.5-14.5); White Blood Cell Count 10.9 10^3/uL (4.8-10.8)
[2024-11-11] MEDS: NOVOLOG FLEXPEN-LOW RESISTANCE SC ×2 (08:28→16:13)
[2024-11-11 09:10] LABS: Blood Urea Nitrogen 32 mg/dl (9-20); Calcium 8.5 mg/dl (8.4-10.2); Carbon Dioxide 23 mmol/L (22-30); Chloride 107 mmol/L (98-107); Estimated Creatinine Clearance 44 ml/min; Glucose 104 mg/dl (70-99); Potassium 3.4 mmol/L (3.5-5.1); Sodium 138 mmol/L (135-145); eGFR 36.33
[2024-11-11] MEDS: ASPIR LOW (ENTERIC COATED) 81 MG PO (09:34)
[2024-11-11] MEDS: PEPCID 20 MG PO (09:34)
[2024-11-11] MEDS: PLETAL 100 MG PO ×2 (09:34→20:18)
[2024-11-11] MEDS: FLOMAX 0.4 MG PO (09:34)
[2024-11-11] MEDS: CYMBALTA DELAYED RELEASE 30 MG PO ×2 (09:34→20:16)
[2024-11-11] MEDS: NEURONTIN 300 MG PO ×3 (09:34→22:07)
[2024-11-11] MEDS: VIBRAMYCIN 100 MG PO (09:34)
[2024-11-11] MEDS: HEPARIN 5000 UNITS SC ×2 (09:34→20:17)
[2024-11-11 10:25] LABS: Glycohemoglobin (HgbA1c) 5.3 % (4.0-5.6)
[2024-11-11 11:07] LABS: Venous Blood Gas B.E. -3.1 mmol/L (-4 to +4); Venous Blood Gas O2 Sat % 66.9 %; Venous Blood Gas pCO2 50 mmHg (35-48); Venous Blood Gas pH 7.29 (7.32-7.43); Venous Blood Gas pO2 39 mmHg (30-50)
[2024-11-11 11:08] LABS: Venous Blood Gas O2 Therapy RA
[2024-11-11] MEDS: TYLENOL 650 MG PO ×3 (11:26→22:07)
--- NOTE | 2024-11-11 12:40 | PTCARENOTE ---
Pt's temp found to be 101 at 1130 with routine vital signs. PRN tylenol administered. Upon recheck, temp found to be 103. BP 100/[address] Carrillo made aware who gave orders for extra dose of tylenol and placed orders for transfer to IMU.
[2024-11-11 12:57] LABS: Glucose - Point of Care 156 mg/dl (70-99)
[2024-11-11] MEDS: TYLENOL 325 MG PO (13:01)
[2024-11-11] MEDS: KCL 40 MEQ PO (13:01)
[2024-11-11] MEDS: NOVOLOG FLEXPEN-LOW RESISTANCE 1 UNITS SC (13:02)
[2024-11-11] MEDS: MAXIPIME 2000 MG IV (13:49)
[2024-11-11] MEDS: STERILE WATER FOR INJECTION 10 ML IV ×2 (13:50→17:44)
--- NOTE | 2024-11-11 14:20 | CON.PUL ---
Consultation
Consultation Request
Date/Time Consultation Requested: 11/11/2024
Date/Time Consultation Performed: 11/11/2024
Requesting Provider: Beltran Carrillo
Performing Provider: Chan Jama
Reason for Consultation: Hypoxia
Medical History
-
Chief Complaint: Fever, vomiting.
History of Present Illness:
Patient is a very pleasant 74-year-old gentleman with history of obstructive airway disease, hyperlipidemia, diabetes, congestive heart failure, peripheral vascular disease, who presented from a nursing facility with fever and generalized weakness.
Reported had episode of vomiting also earlier. Patient was noted to have a UTI and was admitted to the hospital on antibiotics. Subsequently blood cultures also became positive. No reported cough or wheezing. Patient was noted to have mild
hypoxia which improved with supplemental oxygen. Pulmonary consultation was requested for further input.
Patient reports history of questionable COPD however he has never smoked and I wonder if he has underlying asthma. Reports history of suspected sleep apnea but has not been on any PAP therapy at home. Does not use oxygen at baseline. During my
evaluation patient was not in any respiratory distress and was comfortably lying in bed.
Past Medical History
Past Medical History: Reports Other
Additional Past Medical History:
COPD
- Cholesteremia
Diabetes
Anemia
Aphasia
COPD
Neuropathy fibromyalgia
Anxiety
Morbid obesity
Depression
CKD
Hypertension GERD
Heart failure
Generalized weakness
Peripheral vascular disease
Urinary tract infection
Past Surgical History: Reports Other
Additional Past Surgical History:
Right AKA
Social History
Tobacco: Non-smoker
Alcohol: None
Drug: None
Living: Intermediate
Family History
Family History: Not pertinent
Allergies / Home Medications
Allergies / Home Medications
Allergies
Allergy/AdvReac Type Severity Reaction Status Date / Time
egg Allergy Severe Anaphylaxis Verified 11/11/24 10:37
Home Medications
�Medication �Instructions �Recorded �Confirmed �Last Taken �Type
acetaminophen 325 mg tablet 325 mg PO Q8HPRN PRN mild pain 11/10/24 11/10/24 11/10/24 History
(Tylenol)
acetaminophen 325 mg tablet 650 mg PO Q4H PRN mild 11/10/24 11/10/24 11/09/24 History
(Tylenol) pain/temp>100F
acetaminophen 325 mg tablet 650 mg PO Q6HPRN PRN mild pain 11/10/24 11/10/24 11/01/24 History
(Tylenol)
albuterol sulfate 90 mcg/actuation 2 puff inhalation R Q4HPRN PRN 11/10/24 11/10/24 08/01/24 History
aerosol inhaler sob/wheezing
amlodipine 10 mg tablet 10 mg PO DAILY 11/10/24 11/10/24 11/10/24 History
aspirin 81 mg tablet,delayed 81 mg PO DAILY 11/10/24 11/10/24 11/10/24 History
release
atorvastatin 80 mg tablet 80 mg PO HS 11/10/24 11/10/24 11/09/24 History
bisacodyl 10 mg rectal suppository 10 mg NC DAILY PRN if no BM by 11/10/24 11/10/24 Unknown History
(Dulcolax (bisacodyl)) morning of 4th day
budesonide-formoterol HFA 160 2 puff inhalation R DAILY 11/10/24 11/10/24 11/10/24 History
mcg-4.5 mcg/actuation aerosol
inhaler (Symbicort)
cilostazol 100 mg tablet 100 mg PO BID 11/10/24 11/10/24 11/10/24 History
duloxetine 30 mg capsule,delayed 30 mg PO BID 11/10/24 11/10/24 11/10/24 History
release
furosemide 40 mg tablet 40 mg PO DAILY 11/10/24 11/10/24 11/10/24 History
gabapentin 600 mg tablet 600 mg PO TID 11/10/24 11/10/24 11/10/24 History
guaifenesin 100 mg/5 mL oral liquid 200 mg PO Q6HPRN PRN cough 11/10/24 11/10/24 09/09/24 History
insulin aspart U-100 100 unit/mL 1 sliding scale dose SC DIRECTED 11/10/24 11/10/24 11/10/24 History
subcutaneous solution (Novolog
U-100 Insulin aspart)
insulin glargine 100 unit/mL (3 18 unit SC HS 11/10/24 11/10/24 11/09/24 History
mL) subcutaneous pen (Lantus
Solostar U-100 Insulin)
loperamide 2 mg capsule 2 mg PO DIRECTED PRN loose stool 11/10/24 11/10/24 09/01/24 History
loratadine 10 mg tablet 10 mg PO DAILY 11/10/24 11/10/24 11/10/24 History
lubiprostone 8 mcg capsule 8 mcg PO BID 11/10/24 11/10/24 11/10/24 History
(Amitiza)
magnesium hydroxide 400 mg/5 mL 30 ml PO [id number] PRN if no BM in 3 11/10/24 11/10/24 10/19/24 History
oral suspension (Milk of Magnesia) days
melatonin 3 mg tablet 6 mg PO HS 11/10/24 11/10/24 11/09/24 History
metoprolol succinate 50 mg 50 mg PO DAILY 11/10/24 11/10/24 11/10/24 History
tablet,extended release 24 hr
nitroglycerin 0.3 mg sublingual 0.3 mg sublingual Q5-15M PRN chest 11/10/24 11/10/24 Unknown History
tablet pain
omeprazole 20 mg tablet,delayed 20 mg PO DAILY 11/10/24 11/10/24 11/10/24 History
release
ondansetron HCl 4 mg tablet 4 mg PO Q8H PRN nausea/vomiting 11/10/24 11/10/24 11/10/24 History
oxycodone 5 mg capsule 5 mg PO Q4H PRN moderate-severe 11/10/24 11/10/24 Unknown History
pain
tamsulosin 0.4 mg capsule (Flomax) 0.4 mg PO DAILY 11/10/24 11/10/24 11/10/24 History
therapeutic multivitamin 1 tab PO DAILY 11/10/24 11/10/24 11/10/24 History
tirzepatide 2.5 mg/0.5 mL 2.5 mg SC WE 11/10/24 11/10/24 11/08/24 History
subcutaneous pen injector
(Dillon)
urea 10 % topical cream 1 applic topical HS apply to LLE 11/10/24 11/10/24 11/09/24 History
Review of Systems
Vitals / Labs / Diagnostic Testing
Vital Signs
Temp Pulse Resp BP Pulse Ox
100.7 F H 105 24 121/67 94
11/11/24 13:35 11/11/24 13:35 11/11/24 12:32 11/11/24 13:35 11/11/24 11:24
Lab Data
11/11/24 07:10
11/11/24 07:10
Microbiology
11/10/24 20:33 Blood/Venous Blood Culture - Preliminary
Positive culture in progress
11/10/24 20:33 Blood/Venous Gram Stain - Preliminary
11/10/24 19:53 Blood/Venous Blood Culture - Preliminary
Klebsiella pneumoniae group
11/10/24 19:53 Blood/Venous Gram Stain - Preliminary
11/10/24 20:33 Nasal Swab Influenza Types A & B ([place]) - Final
Negative for Influenza A & B, NAAT
Negative results must be combined with clinical observations
and patient history.
Nucleic Acid Amplification test (NAAT)performed on the
[employer] platform.
Diagnostic Testing:
Physical Exam
-
HEENT: Normocephalic
Cardiovascular: S1/S2
Respiratory: Clear
GI: Soft and Non Distended
Neurology: Awake and Alert
Skin: Warm
General: Comfortable
Assessment
-
#1. Acute hypoxic respiratory failure with RML pneumonia with Bacteremia and sepsis
- With reported vomiting prior to admission, aspiration pneumonia also in differential diagnosis
- Continue O2 support as needed to keep saturation above 90%
- Agree with broad-spectrum antibiotic, currently on IV cefepime and doxycycline, WBC count improving down to 10.9 today from 13.5 on admission
- Source of bacteremia appears to be UTI rather than pneumonia, await final identification of the organism, follow-up urine cultures
- Check arterial blood gas, VBG suggestive of pH 7.29 and PCO2 of 50
- Patient at risk of worsening respiratory failure requiring noninvasive positive pressure ventilation and even intubation. Baseline morbid obesity with suspected sleep disordered breathing and obesity hypoventilation syndrome, currently has
pneumonia as well as UTI with bacteremia. Also concern for pulmonary edema.
#2. PEGGY with suspected obesity hypoventilation syndrome, morbid obesity
- Patient reports prior workup for obstructive sleep apnea records not available for review. Has not been on any positive pressure therapy at night
- Patient awake and alert, VBG suggestive of mild acidosis pH 7.29 with pCO2 of 50. Will check ABG for better evaluation
- Serum bicarb is not chronically elevated however patient also has renal dysfunction so may have a component of metabolic acidosis also. ABG
- Monitor closely in IMU, avoid any sedating medication
#3. History of obstructive airway disease, suspect asthma
- Patient has never smoked and COPD appears to be unlikely
- Patient likely has under lying asthma instead. Continue Symbicort twice daily as ordered, as needed albuterol in addition
- Currently no wheezing on exam and patient does not seem to have acute exacerbation, hold off steroids for now
#4. Suspect heart failure with preserved ejection fraction
- Echo reviewed from earlier this month unremarkable. Patient does have left ventricular hypertrophy. BNP elevated at 1330, chest x-ray suggestive of mild vascular prominence concerning for pulmonary congestion
- In view of soft blood pressure, holding of diuretics. Avoid excessive IV fluids
- Monitor closely for any respiratory deterioration
Other medical diagnoses:
- UTI with bacteremia. Await culture and sensitivities. Continue antibiotics
- BRIAN vs CKD
- Hyperlipidemia
- Diabetes
Total time spent on this consultation/encounter __78__ minutes which includes review of history, physical exam, medications, laboratory data, personal review of imaging, extensive review of outpatient records, discussion with care team and
respiratory therapy.
Data:
ECHO 10/2024: Normal left ventricular chamber size. Normal left ventricular systolic
function. Left ventricular ejection fraction is 55-60% by visual assessment. No
gross regional wall motion abnormalities. Mild concentric left ventricular
hypertrophy. Normal diastolic function.
Normal right ventricular size and function.
No significant valvular pathology.
--- NOTE | 2024-11-11 14:40 | PTCARENOTE ---
Patient arrived to IMU from 4E. AOx3, but is forgetful. Bed alarm on and audible. [place]. Patient's SpO2 88-89% on RA, patient put on 2L NC. ABG drawn by RT at bedside per order. MAP >65. NSR-sinus tachy on monitor. Rectal temp 102.4 F. Ice packs
placed under armpits and in groin. Awaiting cooling blanket to arrive to floor Patient incontinent to liquid stool. Per 4E RN, patient has had 2 liquid stools during shift today. Stool sent to lab per MD order. R AKA. IVF running per order. Call
prater within reach, bed in lowest position, and bed of wheels locked.
[2024-11-11 14:54] LABS: B.E. -1.8 mmol/L; HCO3 21.7 mmol/L (21-28); O2 Saturation % 97.1 % (94-98); PCO2 32 mmHg (35-48); PO2 71 mmHg (83-108); pH 7.44 (7.35-7.45)
--- NOTE | 2024-11-11 15:20 | PTCARENOTE ---
Cooling blanket placed per order. Rectal thermometer 102.3F. Skin warm and intact. Call prater within reach.
[2024-11-11 16:24] LABS: Glucose - Point of Care 101 mg/dl (70-99)
--- NOTE | 2024-11-11 16:29 | CON.ID ---
Consultation
-
Date/Time Consultation Requested: November 11, 2024 1244
Date/Time Consultation Performed: November 11, 2024 1630
Requesting Provider: Dr. Beltran Carrillo
Performing Provider: Dr. Yuni Miller
Reason for Consultation: Fever, bacteremia
Chief Complaint / Past History
Chief Complaint
Fevers and weakness
History of Present Illness
74-year-old male with diabetes mellitus, COPD/asthma, PAD, BPH who presented from [facility] to the hospital today due to acute onset of fever. Patient reports he vomited this morning. He then started coughing productive of phlegm. He reports
dysuria. He has history of UTIs. No flank pain. Positive chills. No diarrhea. No abdominal pain. No headaches. In the ED temperature 102 and consistently elevated. White count was 13.5. Urine analysis 3+ leukocyte esterase more than 100
white blood cells. Urine culture pending. Blood cultures x 2 Klebsiella pneumonia group. Initial chest x-ray shows pulmonary edema. Repeat chest x-ray suspicious for mild congestive heart failure, increased opacity in the medial right lung base.
He was on ceftriaxone and doxycycline. He is now on cefepime.
Past History
Additional Past Medical History:
Diabetes mellitus type 2
COPD/asthma
HLD
PAD
Neuropathy
Fibromyalgia
Hypertension
CHF
CKD
BPH
PEGGY
Depression/anxiety
Right AKA
Allergy History:
egg Allergy (Severe, Verified 11/11/24 10:37)
Anaphylaxis
Medications Reviewed: Yes
Current Antibiotics:
Cefepime 2 g IV every 12 hours
Doxycycline IV
Social History
Tobacco: Non-Smoker
Alcohol: None
Drug: None
Living: [facility]
Family History
Family History: Not Pertinent
Review of Systems
Review of Systems
General: Fever, Chills and Change in Appetite
HEENT: Negative Headache or Pharyngitis
Cardiovascular: Negative Chest Pain
Respiratory: Dyspnea and Cough
Gasteroenterology: Nausea and Vomiting; Negative Diarrhea
Genital / Urological: Dysuria; Negative Flank Pain
Endocrine: Weakness
Neurological: Negative Dizziness
All systems: All other systems were reviewed and were negative
Vital Signs
Temp Pulse Resp BP Pulse Ox
102.0 F H 97 14 115/83 98
11/11/24 16:00 11/11/24 16:00 11/11/24 16:00 11/11/24 16:00 11/11/24 16:00
Physical Exam
Physical Exam
Constitutional: No Acute Distress, Comfortable and Obese
Eyes: No Conjunctival Hemorrhage and Sclera Anicteric
Oral: Other (edentulous)
Cardiovascular: Regular Rate and S1/S2
Pulmonary: Rales (bases)
Gastrointestinal: Soft, Non Tender, Non Distended and Normal Bowel Sounds
Genito-Urinary: Negative CVA Tenderness
Extremities: Negative Edema
Neurological: AO x 3
Lab / Diagnostic Study Results
11/11/24 07:10
11/11/24 07:10
Abs Immat Gran (auto) 0.1 10^3/uL (0-0.05) H 11/10/24 19:53
Absolute Neuts (auto) 11.0 10^3/uL (1.4-6.5) H 11/10/24 19:53
Absolute Lymphs (auto) 0.9 10^3/uL (1.2-3.4) L 11/10/24 19:53
Absolute Monos (auto) 1.5 10^3/uL (0.1-0.6) H 11/10/24 19:53
Absolute Basos (auto) 0.0 10^3/uL (0-0.2) 11/10/24 19:53
Immature Gran % 0.5 % (0-0.5) 11/10/24 19:53
Neutrophils % 81.2 % (42.2-75.2) H 11/10/24 19:53
Lymphocytes % 6.6 % (20.5-51.1) L 11/10/24 19:53
Monocytes % 11.2 % (1.7-9.3) H 11/10/24 19:53
Eosinophils % 0.2 % (0-6) 11/10/24 19:53
Basophils % 0.3 % (0-2) 11/10/24 19:53
Lactic Acid 1.4 mmol/L (0.7-2.0) 11/10/24 19:53
Ur Squamous Epith Cells 6-10 /LPF (Few) 11/10/24 20:33
Microbiology Results
Micro:
11/11/24 15:48 Salmonella/Shigella Culture - Pending
Feces/Stool Campylobacter Culture - Pending
Shiga Toxin Test - Pending
11/11/24 15:48 Stool Leukocytes - Pending
Feces/Stool
11/11/24 15:48 C. difficile GDH Antigen & Toxins - Pending
Feces/Stool
11/11/24 13:54 Blood Culture - Pending
Blood/Venous
11/10/24 20:33 Blood Culture - Preliminary
Blood/Venous Positive culture in progress
Gram Stain - Preliminary
11/11/24 12:44 Blood Culture - Pending
Blood/Venous
11/10/24 19:53 Blood Culture - Preliminary
Blood/Venous Klebsiella pneumoniae group
Gram Stain - Preliminary
11/11/24 03:22 MRSA Screen - Pending
Nose
11/10/24 20:33 Urine Culture - Pending
Urine
11/10/24 20:33 Influenza Types A & B ([place]) - Final
Nasal Swab Negative for Influenza A & B, NAAT
Negative results must be combined with clinical observations
and patient history.
Nucleic Acid Amplification test (NAAT)performed on the
[employer] platform.
6/21/25 CXR: Findings continued to be suspicious for mild congestive heart failure. Slightly increased opacity in the medial right lung base could represent asymmetric edema versus mild focal pneumonia, new since prior examination.
11/10/24 Renal US: No sonographic evidence for hydronephrosis in either kidney.
2. Moderate chronic bilateral renal disease.
3. Mild to moderate diffuse thickening and trabeculation of the urinary bladder wall (either secondary to cystitis or chronic urinary bladder outlet obstruction).
Assessment / Plan
# Complicated symptomatic UTI
# Klebsiella pneumonia bacteremia x 2 sets
# Fever
# Leukocytosis
# Possible R aspiration PNA after emesis
#[facility] ([facility]) resident
- Ucx pending
- Follow repeat bcx
- Replace cefepime with meropenem pending cx data
- DC doxycycline
- Trend temps/wbc.
# Conditions [employer]
Diabetes mellitus type 2
COPD/asthma
HLD
PAD
Neuropathy
Fibromyalgia
Hypertension
CHF
CKD
BPH
PEGGY
Depression/anxiety
Right AKA
Care Review
Plan reviewed with: Physician (Dr. Carrillo)
[2024-11-11] MEDS: MERREM 500 MG IV (17:44)
--- NOTE | 2024-11-11 20:00 | PTCARENOTE ---
Resumed care of pt laying in bed snoring loudly. Pt easily arousable to voice, AAOx3. Pt drowsy, denies any complaints at this time. Rectal probe in place for constant temp monitoring, Cooling blanket in place, and turned off per protocol, current
temp 99.7. HR in the low 100's ST on the monitor. POX 96% on 2 LO2 NC. Lungs dec at bases, MICHELLE/ Tachypnea. Hyper bowel, round obese abd. Pt inc of stool, nicci care provided. Right AKA. +2 LE edema, weak pedal pulse. Red/ brown discoloration to LLE.
Scrotal edema present. Pt repositioned per comfort. Right AC int infusing NSS@60ml/hr as ordered. Call prater in reach. Will continue to monitor.
[2024-11-11] MEDS: NSS 1000 IV (20:19)
[2024-11-11] MEDS: VIBRAMYCIN 260 MG IV (20:33)
[2024-11-11 21:22] LABS: Glucose - Point of Care 135 mg/dl (70-99)
[2024-11-11] MEDS: LIPITOR 80 MG PO (22:08)
[2024-11-11] MEDS: LANTUS 0.05 UNITS SC (22:08)
[2024-11-11] MEDS: MELATONIN 6 MG PO (22:36)
[2024-11-12] VITALS (14 sets, daily range): BP systolic 115–183; BP diastolic 44–94; BMI 37.7
[2024-11-12] MEDS: STERILE WATER FOR INJECTION 10 ML IV ×3 (02:23→17:46)
[2024-11-12] MEDS: MERREM 500 MG IV ×3 (02:23→17:46)
[2024-11-12 04:40] LABS: % Basophils 0.1 % (0-2); % Eosinophils 1.2 % (0-6); % Immature Granulocytes 0.7 % (0-0.5); % Lymphocytes 14.3 % (20.5-51.1); % Monocytes 12.4 % (1.7-9.3); % Neutrophils 71.3 % (42.2-75.2); Absolute Eosinophils 0.1 10^3/uL (0-0.7); Absolute Immature Granulocytes 0.1 10^3/uL (0-0.05); Absolute Monocytes 0.8 10^3/uL (0.1-0.6); Absolute Neutrophils 4.8 10^3/uL (1.4-6.5); Hematocrit 32.7 % (39.0-52.0); Hemoglobin 10.9 g/dL (13.0-18.0); Mean Corp Hgb Conc. 33.3 g/dL (33.0-37.0); Mean Corpuscular Hgb 26.6 pg (27.0-31.0); Mean Corpuscular Volume 79.8 fL (80.0-94.0); Mean Platelet Volume 10.1 fL (7.4-10.4); Nucleated Red Blood Cells % 0 % (-); Platelet Count 113 10^3/uL (130-400); Red Cell Dist. Width 15.9 % (11.5-14.5); White Blood Cell Count 6.8 10^3/uL (4.8-10.8)
[2024-11-12 04:57] LABS: Blood Urea Nitrogen 27 mg/dl (9-20); Calcium 8.5 mg/dl (8.4-10.2); Carbon Dioxide 21 mmol/L (22-30); Chloride 111 mmol/L (98-107); Estimated Creatinine Clearance 60 ml/min; Glucose 113 mg/dl (70-99); Magnesium 1.7 mg/dl (1.6-2.3); Potassium 3.4 mmol/L (3.5-5.1); Sodium 136 mmol/L (135-145); eGFR 52.41
--- NOTE | 2024-11-12 05:45 | PTCARENOTE ---
Pt having copious amounts of liquid brown stool overnight. Multiple bed changes. Rectal trumpet applied. Cooling blanket removed from pt at this time. Current rectal temp 99.2. Ivonne GAONA notified of am labs, orders obtained. No other changes in
assessment noted at this time.
[2024-11-12] MEDS: KCL 40 MEQ PO (06:25)
[2024-11-12] MEDS: SYMBICORT 160/4.5 MCG INHALER 2 PUFF INH (07:12)
--- NOTE | 2024-11-12 07:55 | W.PN.HOSP.TC ---
Today's Communication/Plan
-
Continue antibiotics
Stopped IV fluids as BP okay, creatinine improved
Continue to hold Lasix for now -- consider resuming tomorrow or if patient develops shortness of breath from pulmonary edema (will need to check CXR again in that case to confirm pulm edema)
Closely monitor patient's respiratory status, may need diuresis if develops symptomatic pulmonary edema
Replace and monitor potassium
Assessment / Plan
Assessment / Plan
Physical Exam
General: Well Developed, Well Nourished and No Apparent Distress
HEENT: Normocephalic, Moist mucous membranes and Atraumatic
Respiratory: Clear
Cardiac: S1/S2 and Regular Rhythm
GI: Soft, Non Tender, Non Distended and Normal Bowel Sounds
Musculoskeletal: No Cyanosis and No Edema
Skin: Warm. Dry.
Neuro: AAO x 3 and Nonfocal/grossly intact
Psych: Calm
Assessment/Plan
74[facility] with past medical history with hyperlipidemia, type 2 diabetes mellitus, CHF and peripheral artery disease, presented with fever and generalized weakness since last night, he also reported vomiting and diarrhea.
#Suspected Complicated UTI
#Sepsis
#Leukocytosis
#Fevers
#Klebsiella pneumonia Bacteremia Suspected from Complicated UTI
#Vomiting and Diarrhea and possible Aspiration Pneumonia from emesis
- Transferred on 11/11/24 to IMU from tele given patient's urosepsis, bacteremia, CHF, soft blood pressures and obesity with possible PEGGY
- Ceftriaxone --> Cefepime --> Merrem
- Continue to follow blood cultures
- Follow urine culture
- Okay to stop IV fluids today since BP okay
# Acute hypoxic respiratory failure with RML pneumonia in the setting of Bacteremia and Sepsis
# Vomiting -- possible Aspiration Pneumonia
- Transferred on 11/11/24 to IMU from tele given patient's urosepsis, bacteremia, CHF, soft blood pressures and obesity with possible PEGGY
- Chest x-ray with possible pulmonary edema as well as pneumonia
- Continue supplemental oxygen to keep sat greater than 90, wean as tolerated
- Hold Lasix given sepsis and soft blood pressures, IV fluids recently given --> consider resuming on 11/13/24 or if patient becomes symptomatic
- Strict I &O, daily weight
-nebs continued
- Patient at risk of worsening respiratory failure requiring noninvasive positive pressure ventilation and maybe intubation (morbid obesity with suspected sleep disordered breathing, with pneumonia, UTI, bacteremia and pulmonary edema)
#Liquid stools
#Mild Abdominal Pain
#Ileus on abdominal x-ray
- Previously given IV fluids, now stopped as above since BP okay
- Patient still having lots of liquid brown stool overnight 11/11/24 to 11/12/24 -- Rectal Trumpet placed
- Check stool studies
- Given persistent significant diarrhea and ileus, consulted gastroenterology
# Suspected Acute HFpEF
- BNP elevated at 1330, initial chest x-ray suggestive of pulmonary edema
- Since patient has blood pressures on the lower side, held off on diuretics
- Stopped IV fluids today
- Echo ordered
- Monitor closely for any respiratory deterioration
#Generalized Weakness
- Suspected secondary to sepsis/bacteremia
# PEGGY
# Concern for Obesity Hypoventilation Syndrome
# COPD is unlikely -- never smoker
# Concern for Asthma
- Patient says he had evaluation for sleep apnea outpatient, but was never on CPAP
- Continue Symbicort and PRN albuterol
- ABG without acidosis
- Continue to monitor
# Hypokalemia likely from vomiting/diarrhea
- Supplement potassium
- Recheck BMP this evening
# BRIAN vs. CKD stage unspecified
- Creatinine 1.9--->1.4 after IV fluids
- Ultrasound of kidneys: no evidence for hydronephrosis in either kidney, moderate chronic bilateral renal disease, mild to moderate diffuse thickening and trabeculation of the urinary bladder wall (either secondary to cystitis or
chronic urinary bladder outlet obstruction).
- Continue to monitor
# Essential hypertension
- Patient hypotensive in ER
- Continue to hold Lasix, Norvasc and Metoprolol
# GERD
- PPI continue
# Hyperlipidemia
- Statin continued
# History of peripheral artery disease
# Right AKA
- Continue Aspirin and High-Intensity Statin
- Cilostazol continued
# Depression/anxiety
- Duloxetine continued
# Peripheral neuropathy
- Gabapentin continued
- Oxycodone continue
# BPH
- Flomax continued
# Type 2 diabetes mellitus
- Low dose Sliding scale
- Glargine resumed at less than home dose
#Morbid Obesity
DVT Prophylaxis: Heparin SUBQ
CODE STATUS: Full Code
Bacteremia and patient at risk of worsening respiratory failure possibly requiring noninvasive positive pressure ventilation and maybe intubation (morbid obesity with suspected sleep disordered breathing, with pneumonia, UTI, bacteremia and
pulmonary edema) is a high risk encounter.
Anticipated Discharge: > 48 hours
Subjective/Interval History
-
Date of Service: November 12, 2024
Patient was seen and examined. He denied any chest pain, SOB or any other complaints. No Tylenol or cooling blankets required since last night as fever resolved overnight, as per nurse.
Objective Data
-
Labs:
Laboratory Results
11/11/24 11/12/24 11/12/24
23:00 04:03 12:00
WBC 6.8
Hgb 10.9 L
Hct 32.7 L
Plt Count 113 L
Sodium Cancelled 136
Potassium Cancelled 3.4 L Pending
Chloride Cancelled 111 H
Carbon Dioxide Cancelled 21 L
BUN Cancelled 27 H
Creatinine Cancelled 1.4 H
Glucose Cancelled 113 H
Calcium Cancelled 8.5
Vital Signs:
Vital Signs
Temp Pulse Resp BP Pulse Ox
100.1 F 102 16 138/64 94
11/12/24 02:29 11/12/24 07:12 11/12/24 07:12 11/12/24 04:00 11/12/24 07:12
I&O
11/11/24 11/12/24 11/13/24
06:59 06:59 06:59
Intake Total 370 / 370 1769
Output Total 600 / 600
Balance -230 / -230 1769
[2024-11-12 08:02] LABS: Glucose - Point of Care 112 mg/dl (70-99)
[2024-11-12] MEDS: NOVOLOG FLEXPEN-LOW RESISTANCE SC ×4 (08:35→16:27)
[2024-11-12] MEDS: PLETAL 100 MG PO ×2 (08:38→20:26)
[2024-11-12] MEDS: ASPIR LOW (ENTERIC COATED) 81 MG PO (08:38)
[2024-11-12] MEDS: NEURONTIN 300 MG PO ×3 (08:38→20:26)
[2024-11-12] MEDS: PEPCID 20 MG PO (08:38)
[2024-11-12] MEDS: FLOMAX 0.4 MG PO (08:38)
[2024-11-12] MEDS: CYMBALTA DELAYED RELEASE 30 MG PO ×2 (08:38→20:26)
[2024-11-12] MEDS: HEPARIN 5000 UNITS SC ×2 (08:38→20:26)
[2024-11-12] MEDS: VIBRAMYCIN 260 MG IV (08:39)
--- NOTE | 2024-11-12 09:59 | CM ---
Addendum entered by Liz Garcia 11/12/24 10:48:
Spoke with Liaison at facility. Transfer form on the chart, stating patient resident at 06/16 was a LTC patient. Liaison to confirm patient status.
Original Note:
Patient seen at bedside on IMU. Patient on O2 and patient stated that he is from [facility] and his plan is to return. No transfer form scanned into [employer]. CM reached out to liaison and requested call back to confirm patient status. CM will
continue to follow for discharge planning needs.
Plan; SNF; confirm status and ability to return
--- NOTE | 2024-11-12 10:49 | W.PN.ID1 ---
Date of Service
Date of Service: November 12, 2024
Today's Communication
Continue meropenem.
Assessment / Plan
# Complicated symptomatic UTI
# Klebsiella pneumonia bacteremia x 2 sets
# Fever- trending down
# Leukocytosis - resolved
# Possible R aspiration PNA after emesis
#SNF ([facility]) resident
- Ucx GNR
- Follow repeat bcx
- Continue meropenem (d2)pending cx data
- Trend temps
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
Diabetes mellitus type 2
COPD/asthma
HLD
PAD
Neuropathy
Fibromyalgia
Hypertension
CHF
CKD
BPH
PEGGY
Depression/anxiety
Right AKA
Chief Complaint
-: UTI and Bacteremia
Subjective / Review of Systems
Feels lethargic.
Vital Signs / Physical Exam
Vital Signs
Vital Signs
Temp Pulse Resp BP Pulse Ox
100.1 F 102 21 142/57 94
11/12/24 02:29 11/12/24 09:30 11/12/24 09:30 11/12/24 08:38 11/12/24 09:30
Physical Exam
Constitutional: No Acute Distress and Obese
Cardiovascular: Regular Rate and S1/S2
Pulmonary: Clear
Gastrointestinal: Soft, Non Tender, Non Distended and Normal Bowel Sounds
Genito-Urinary: Negative CVA Tenderness
Extremities: Negative Edema
Neurological: AO x 3
Objective Data
Lab Data
Lab Results
11/12/24 04:03
Estimated Creat Clear 60 ml/min 11/12/24 04:03
Lactic Acid 1.4 mmol/L (0.7-2.0) 11/10/24 19:53
Total Bilirubin 1.3 mg/dl (0.2-1.3) 11/10/24 19:53
AST 31 U/L (17-59) 11/10/24 19:53
ALT 20 U/L (0-50) 11/10/24 19:53
Alkaline Phosphatase 77 U/L (38-126) 11/10/24 19:53
Most recent labs reviewed.
Micro Results:
11/10/24 20:33 Urine Culture - Preliminary
Urine Gram negative bacilli
11/10/24 20:33 Blood Culture - Preliminary
Blood/Venous Positive culture in progress
Gram Stain - Preliminary
11/10/24 19:53 Blood Culture - Preliminary
Blood/Venous Klebsiella pneumoniae group
Gram Stain - Preliminary
11/11/24 03:22 MRSA Screen - Final
Nose No Methicillin Resistant Staphylococcus aureus isolated.
11/11/24 15:48 C. difficile GDH Antigen & Toxins - Final
Feces/Stool Negative for toxigenic C.difficile
11/11/24 15:48 Salmonella/Shigella Culture - Pending
Feces/Stool Campylobacter Culture - Pending
Shiga Toxin Test - Pending
11/11/24 15:48 Stool Leukocytes - Pending
Feces/Stool
11/11/24 13:54 Blood Culture - Pending
Blood/Venous
11/11/24 12:44 Blood Culture - Pending
Blood/Venous
11/10/24 20:33 Influenza Types A & B ([place]) - Final
Nasal Swab Negative for Influenza A & B, NAAT
Negative results must be combined with clinical observations
and patient history.
Nucleic Acid Amplification test (NAAT)performed on the
[employer] platform.
11/11/24 CXR: Findings continued to be suspicious for mild congestive heart failure. Slightly increased opacity in the medial right lung base could represent asymmetric edema versus mild focal pneumonia, new since prior examination.
11/10/24 Renal US: No sonographic evidence for hydronephrosis in either kidney.
2. Moderate chronic bilateral renal disease.
3. Mild to moderate diffuse thickening and trabeculation of the urinary bladder wall (either secondary to cystitis or chronic urinary bladder outlet obstruction).
[2024-11-12] MEDS: NSS IV (11:08)
[2024-11-12 12:07] LABS: Glucose - Point of Care 122 mg/dl (70-99)
[2024-11-12 12:39] LABS: Potassium 3.5 mmol/L (3.5-5.1)
--- NOTE | 2024-11-12 14:17 | CON.GI ---
Consultation
-
Date/Time Consultation Requested: 11/12/2024
Date/Time Consultation Performed: 11/12/2024
Requesting Provider: Hospitalist
Performing Provider: Judy PORTILLO
Reason for Consultation: diarrhea / ileus
Medical History
Chief Complaint / HPI
Chief Complaint: fever
History of Present Illness:
74-year-old male with below mentioned past medical history admitted with fever/generalized weakness. Noted to have UTI. Currently admitted to IMU with urosepsis/pulmonary edema. GI was consulted since patient has been having multiple loose stools
since admission. No blood or mucus with stool. Abdominal x-ray showing moderate diffuse distention of the colon suggestive of colonic ileus
Past Medical History
Past Medical History: Other (OPD - Cholesteremia Diabetes Anemia Aphasia COPD Neuropathy fibromyalgia Anxiety Morbid obesity Depression CKD Hypertension GERD Heart failure Generalized weakness Peripheral vascular disease Urinary tract infection)
Past Surgical History: Other (Right AKA)
Social History
Tobacco: Non-Smoker
Alcohol: None
Allergies / Home Medications
Allergy/AdvReac Type Severity Reaction Status Date / Time
egg Allergy Severe Anaphylaxis Verified 11/11/24 10:37
�Medication �Instructions �Recorded
acetaminophen 325 mg tablet 325 mg PO Q8HPRN PRN mild pain 11/10/24
(Tylenol)
acetaminophen 325 mg tablet 650 mg PO Q4H PRN mild 11/10/24
(Tylenol) pain/temp>100F
acetaminophen 325 mg tablet 650 mg PO Q6HPRN PRN mild pain 11/10/24
(Tylenol)
albuterol sulfate 90 mcg/actuation 2 puff inhalation R Q4HPRN PRN 11/10/24
aerosol inhaler sob/wheezing
amlodipine 10 mg tablet 10 mg PO DAILY 11/10/24
aspirin 81 mg tablet,delayed 81 mg PO DAILY 11/10/24
release
atorvastatin 80 mg tablet 80 mg PO HS 11/10/24
bisacodyl 10 mg rectal suppository 10 mg [place] DAILY PRN if no BM by 11/10/24
(Dulcolax (bisacodyl)) morning of 4th day
budesonide-formoterol HFA 160 2 puff inhalation R DAILY 11/10/24
mcg-4.5 mcg/actuation aerosol
inhaler (Symbicort)
cilostazol 100 mg tablet 100 mg PO BID 11/10/24
duloxetine 30 mg capsule,delayed 30 mg PO BID 11/10/24
release
furosemide 40 mg tablet 40 mg PO DAILY 11/10/24
gabapentin 600 mg tablet 600 mg PO TID 11/10/24
guaifenesin 100 mg/5 mL oral liquid 200 mg PO Q6HPRN PRN cough 11/10/24
insulin aspart U-100 100 unit/mL 1 sliding scale dose SC DIRECTED 11/10/24
subcutaneous solution (Novolog
U-100 Insulin aspart)
insulin glargine 100 unit/mL (3 18 unit SC HS 11/10/24
mL) subcutaneous pen (Lantus
Solostar U-100 Insulin)
loperamide 2 mg capsule 2 mg PO DIRECTED PRN loose stool 11/10/24
loratadine 10 mg tablet 10 mg PO DAILY 11/10/24
lubiprostone 8 mcg capsule 8 mcg PO BID 11/10/24
(Amitiza)
magnesium hydroxide 400 mg/5 mL 30 ml PO L14QINS PRN if no BM in 3 11/10/24
oral suspension (Milk of Magnesia) days
melatonin 3 mg tablet 6 mg PO HS 11/10/24
metoprolol succinate 50 mg 50 mg PO DAILY 11/10/24
tablet,extended release 24 hr
nitroglycerin 0.3 mg sublingual 0.3 mg sublingual Q5-15M PRN chest 11/10/24
tablet pain
omeprazole 20 mg tablet,delayed 20 mg PO DAILY 11/10/24
release
ondansetron HCl 4 mg tablet 4 mg PO Q8H PRN nausea/vomiting 11/10/24
oxycodone 5 mg capsule 5 mg PO Q4H PRN moderate-severe 11/10/24
pain
tamsulosin 0.4 mg capsule (Flomax) 0.4 mg PO DAILY 11/10/24
therapeutic multivitamin 1 tab PO DAILY 11/10/24
tirzepatide 2.5 mg/0.5 mL 2.5 mg SC WE 11/10/24
subcutaneous pen injector
(Mounjaro)
urea 10 % topical cream 1 applic topical HS apply to LLE 11/10/24
Review of Systems
-
All other systems: A 12 pt ROS was Negative except as stated above in HPI
Vital Signs
Temp Pulse Resp BP Pulse Ox
98.2 F 97 30 135/62 93
11/12/24 07:55 11/12/24 12:00 11/12/24 12:00 11/12/24 10:01 11/12/24 12:00
Physical Exam
Exam
General: No Apparent Distress and Comfortable
Respiratory: Clear
GI: Soft, Non Tender and Non Distended
Neuro: AO x 3
Results
WBC 6.8 10^3/uL (4.8-10.8) 11/12/24 04:03
Hgb 10.9 g/dL (13.0-18.0) L 11/12/24 04:03
Hct 32.7 % (39.0-52.0) L 11/12/24 04:03
MCV 79.8 fL (80.0-94.0) L 11/12/24 04:03
Plt Count 113 10^3/uL (130-400) L 11/12/24 04:03
Absolute Neuts (auto) 4.8 10^3/uL (1.4-6.5) 11/12/24 04:03
Sodium 136 mmol/L (135-145) 11/12/24 04:03
Potassium 3.5 mmol/L (3.5-5.1) 11/12/24 12:03
Chloride 111 mmol/L (98-107) H 11/12/24 04:03
Carbon Dioxide 21 mmol/L (22-30) L 11/12/24 04:03
BUN 27 mg/dl (9-20) H 11/12/24 04:03
Creatinine 1.4 mg/dL (0.7-1.3) H 11/12/24 04:03
Calcium 8.5 mg/dl (8.4-10.2) 11/12/24 04:03
Total Bilirubin 1.3 mg/dl (0.2-1.3) 11/10/24 19:53
AST 31 U/L (17-59) 11/10/24 19:53
ALT 20 U/L (0-50) 11/10/24 19:53
Alkaline Phosphatase 77 U/L (38-126) 11/10/24 19:53
Diagnostic Image Results:
Prior GI Procedures:
EGD: Unable to recall
Colonoscopy: Unable to recall
Assessment / Plan
-
74-year-old male With history of diabetes, COPD, peripheral artery disease, BPH, prior UTI admitted currently with urosepsis. In ED noted to have temperature of 102. WBC 13.5. UA was positive. Blood culture growing Klebsiella pneumoniae.
Initial chest x-ray showing pulmonary edema. Currently admitted to IMU-following up with ID.
-- Urosepsis
-- Loose stools
-- Colonic ileus on abdominal x-ray
plan
Will check stool for infection. C. difficile negative. Stool culture pending. If no infection okay to use antidiarrheal as needed
Although x-ray showing possible colonic ileus patient currently denies any nausea or vomiting. he continues to have loose stools. Abdominal examination grossly unremarkable. Possible etiology secondary to severe sepsis/nonambulatory
Okay to advance diet if no evidence of nausea or vomiting.
Continue further care per ID/medical team
No further recommendation at this point. Will sign off. Please call us back if any question
Total Time Spent with Patient (in minutes): 55
-
-
Thank you for consultation and allowing me to participate in the patient's care. Please call the computer console operator GI physician during the after hours with any questions or concerns.
[2024-11-12] MEDS: KCL 20 MEQ PO (15:04)
--- NOTE | 2024-11-12 16:25 | W.PN.PUL3 ---
Today's Communication / Plan
-
- Discontinue IV fluids, discontinue IV doxycycline
- Continue meropenem, follow-up on cultures
- Lasix 20 mg x 1
Assessment
-
Patient is a very pleasant 74-year-old gentleman with history of obstructive airway disease, hyperlipidemia, diabetes, congestive heart failure, peripheral vascular disease, who presented from a nursing facility with fever and generalized weakness.
Reported had episode of vomiting also earlier. Patient was noted to have a UTI and was admitted to the hospital on antibiotics. Subsequently blood cultures also became positive. No reported cough or wheezing. Patient was noted to have mild
hypoxia which improved with supplemental oxygen. Pulmonary consultation was requested for further input.
Patient reports history of questionable COPD however he has never smoked and I wonder if he has underlying asthma. Reports history of suspected sleep apnea but has not been on any PAP therapy at home. Does not use oxygen at baseline. During my
evaluation patient was not in any respiratory distress and was comfortably lying in bed.
11/12 overview: MAP 84, saturating 93% on 2 L, 1+ edema on exam.
#1. Acute hypoxic respiratory failure with RML pneumonia with Bacteremia and sepsis
- With reported vomiting prior to admission, aspiration pneumonia also in differential diagnosis
- Continue O2 support as needed to keep saturation above 90%
- Agree with broad-spectrum antibiotic, currently on IV meropenem
- Source of bacteremia appears to be UTI rather than pneumonia, await final identification of the organism, follow-up urine cultures
- Arterial blood gas reviewed, no hypercapnia noted.
- Currently saturating 93% on 2 L
#2. PEGGY with suspected obesity hypoventilation syndrome, morbid obesity
- Patient reports prior workup for obstructive sleep apnea records not available for review. Has not been on any positive pressure therapy at night
- Patient awake and alert, ABG 7.44, 32, 71.
- Monitor closely in IMU, avoid any sedating medication
#3. History of obstructive airway disease, suspect asthma
- Patient has never smoked and COPD appears to be unlikely
- Patient likely has under lying asthma instead. Continue Symbicort twice daily as ordered, as needed albuterol in addition
- Currently no wheezing on exam and patient does not seem to have acute exacerbation, hold off steroids for now
#4. Suspect heart failure with preserved ejection fraction
- Echo reviewed from earlier this month unremarkable. Patient does have left ventricular hypertrophy. BNP elevated at 1330, chest x-ray suggestive of mild vascular prominence concerning for pulmonary congestion
- Now that blood pressure is better, discontinue IV fluids, resume low-dose diuretics
- Monitor closely for any respiratory deterioration
Other medical diagnoses:
- UTI with bacteremia. Await culture and sensitivities. Continue antibiotics
- BRIAN vs CKD
- Hyperlipidemia
- Diabetes
Total time spent on this consultation/encounter __48__ minutes which includes review of history, physical exam, medications, laboratory data, personal review of imaging, extensive review of outpatient records, discussion with care team and
respiratory therapy.
Data:
ECHO 10/2024: Normal left ventricular chamber size. Normal left ventricular systolic
function. Left ventricular ejection fraction is 55-60% by visual assessment. No
gross regional wall motion abnormalities. Mild concentric left ventricular
hypertrophy. Normal diastolic function.
Normal right ventricular size and function.
No significant valvular pathology.
Subjective Data
-
Date of Service:
Date of Service: November 12, 2024
Subjective:
Patient comfortably lying in bed in no acute distress.
Review of Systems
Genitourinary: Other (All 14 systems reviewed and negative except as stated above in the history of present illness.)
Objective Data
Data Reviewed
Vital Signs / I&O / Oxygen:
Vital Signs
Temp Pulse Resp BP Pulse Ox
99.2 F 97 18 149/68 82
11/12/24 16:15 11/12/24 16:15 11/12/24 16:15 11/12/24 16:00 11/12/24 16:00
Intake and Output
11/11/24 11/12/24 11/13/24
06:59 06:59 06:59
Intake Total 370 / 370 1769 / 1769 980 / 980
Output Total 600 / 600 1100 / 1100
Balance -230 / -230 1770 / 1770 -120 / -120
SaO2 82
Nasal Cannula flow liters per 2
minute
Physical Exam
General: Comfortable
HEENT: Normocephalic
Cardiovascular: S1-S2
Respiratory: Clear and Non-Labored Respirations
GI: Soft
Neurology: Awake and Alert
Skin: Warm
Labs/Micro/Reports
Lab Data
11/12/24 04:03
11/12/24 12:03
Microbiology
11/11/24 13:54 Blood/Venous Blood Culture - Preliminary
No Growth in 24 hours- Final report to follow
11/11/24 12:44 Blood/Venous Blood Culture - Preliminary
No Growth in 24 hours- Final report to follow
11/11/24 15:48 Feces/Stool Stool Leukocytes - Final
11/10/24 20:33 Urine Urine Culture - Preliminary
Gram negative bacilli
11/10/24 20:33 Blood/Venous Blood Culture - Preliminary
Positive culture in progress
11/10/24 20:33 Blood/Venous Gram Stain - Preliminary
11/10/24 19:53 Blood/Venous Blood Culture - Preliminary
Klebsiella pneumoniae group
11/10/24 19:53 Blood/Venous Gram Stain - Preliminary
11/11/24 03:22 Nose MRSA Screen - Final
No Methicillin Resistant Staphylococcus aureus isolated.
11/11/24 15:48 Feces/Stool C. difficile GDH Antigen & Toxins - Final
Negative for toxigenic C.difficile
11/10/24 20:33 Nasal Swab Influenza Types A & B ([place]) - Final
Negative for Influenza A & B, NAAT
Negative results must be combined with clinical observations
and patient history.
Nucleic Acid Amplification test (NAAT)performed on the
[employer] NOW platform.
[2024-11-12 16:35] LABS: Glucose - Point of Care 112 mg/dl (70-99)
[2024-11-12] MEDS: LASIX 20 MG IV (17:47)
--- NOTE | 2024-11-12 18:11 | PTCARENOTE ---
AOx3, but is forgetful at times and has flat affect. Bed alarm on and audible. ABSENTEE-SHAWNEE. 2L NC with SpO2 greater than 92%. NSR-sinus tachy on monitor. Temp less 100F and less throughout shift. Rectal trumpet draining liquid stool. Utilizes urinal. R AKA.
Tolerating diet. Call prater within reach, bed in lowest position, and bed of wheels locked.
[2024-11-12] MEDS: MELATONIN 6 MG PO (20:26)
[2024-11-12] MEDS: LIPITOR 80 MG PO (20:26)
[2024-11-12] MEDS: TYLENOL 650 MG PO (20:29)
[2024-11-12 21:35] LABS: Glucose - Point of Care 100 mg/dl (70-99)
[2024-11-12] MEDS: LANTUS 0.05 UNITS SC (21:45)
[2024-11-13] VITALS (13 sets, daily range): BP systolic 119–157; BP diastolic 43–76; BMI 37.2
--- NOTE | 2024-11-13 01:11 | PTCARENOTE ---
Caring for pt overnight. aaox3, anxious, [place]K. NSR/ST on monitor. Remains 2LNC. Febrile in beginning of the shift, tylenol given. CC placed d/t frequency from iv lasix. RT in place, will monitor diarrhea. No other issues. Will monitor.
[2024-11-13] MEDS: STERILE WATER FOR INJECTION 10 ML IV ×2 (02:42→09:52)
[2024-11-13] MEDS: MERREM 500 MG IV ×2 (02:42→09:52)
[2024-11-13 04:54] LABS: % Basophils 0.2 % (0-2); % Eosinophils 3.9 % (0-6); % Immature Granulocytes 0.3 % (0-0.5); % Monocytes 15.5 % (1.7-9.3); % Neutrophils 66.1 % (42.2-75.2); Absolute Eosinophils 0.2 10^3/uL (0-0.7); Absolute Lymphocytes 0.8 10^3/uL (1.2-3.4); Absolute Monocytes 0.9 10^3/uL (0.1-0.6); Absolute Neutrophils 3.9 10^3/uL (1.4-6.5); Hematocrit 34.5 % (39.0-52.0); Hemoglobin 11.8 g/dL (13.0-18.0); Mean Corp Hgb Conc. 34.2 g/dL (33.0-37.0); Mean Corpuscular Hgb 26.9 pg (27.0-31.0); Mean Corpuscular Volume 78.6 fL (80.0-94.0); Mean Platelet Volume 9.7 fL (7.4-10.4); Nucleated Red Blood Cells % 0 % (-); Platelet Count 116 10^3/uL (130-400); Red Blood Cell Count 4.39 10^6/uL (4.70-6.10); White Blood Cell Count 5.9 10^3/uL (4.8-10.8)
[2024-11-13 05:44] LABS: Blood Urea Nitrogen 21 mg/dl (9-20); Calcium 8.6 mg/dl (8.4-10.2); Carbon Dioxide 22 mmol/L (22-30); Chloride 111 mmol/L (98-107); Estimated Creatinine Clearance 77 ml/min; Glucose 100 mg/dl (70-99); Potassium 3.2 mmol/L (3.5-5.1); Sodium 137 mmol/L (135-145); eGFR > 60.00
[2024-11-13] MEDS: KCL 40 MEQ PO (06:16)
--- NOTE | 2024-11-13 06:35 | PTCARENOTE ---
pt continues to have liquid diarrhea. rectal trumpet dislodged and pt refuses to replace it. K was 3.2 this morning, SCREW MACHINE TENDER aware. 40kcl PO ordered and given.
--- NOTE | 2024-11-13 07:51 | W.PN.HOSP.TC ---
Today's Communication/Plan
-
see plan
Assessment / Plan
Assessment / Plan
74-year-old male from [facility] with past medical history with hyperlipidemia, type 2 diabetes mellitus, CHF and peripheral artery disease, presented with fever and generalized weakness since last night, he also reported vomiting and diarrhea.
Gen: NAD, Awae and alert
Eyes: EOMI, PERRLA, no scleral icterus.
Neck: supple.
CV: RRR, +S1/S2, no m/r/g.
Resp: CTAB, no rales, wheezes, or rhonchi.
Abd: +BS, soft, diffuse TTP without guarding, ND
Skin: No rashes.
Neuro: CN 2-12 intact, non-focal.
Psych: Normal mood and affect.
11/10/24 20:33 Urine Urine Culture - Preliminary
Gram negative bacilli
11/10/24 19:53 Blood/Venous Blood Culture - Preliminary
Klebsiella pneumoniae group
11/10/24 19:53 Blood/Venous Gram Stain - Preliminary
11/11/24 13:54 Blood/Venous Blood Culture - Preliminary
No Growth in 24 hours- Final report to follow
11/11/24 12:44 Blood/Venous Blood Culture - Preliminary
No Growth in 24 hours- Final report to follow
11/11/24 15:48 Feces/Stool Stool Leukocytes - Final
11/10/24 20:33 Blood/Venous Blood Culture - Preliminary
Positive culture in progress
11/10/24 20:33 Blood/Venous Gram Stain - Preliminary
11/11/24 03:22 Nose MRSA Screen - Final
No Methicillin Resistant Staphylococcus aureus isolated.
11/11/24 15:48 Feces/Stool C. difficile GDH Antigen & Toxins - Final
Negative for toxigenic C.difficile
11/10/24 20:33 Nasal Swab Influenza Types A & B ([place]) - Final
Negative for Influenza A & B, NAAT
Negative results must be combined with clinical observations
and patient history.
Nucleic Acid Amplification test (NAAT)performed on the
[employer] platform.
CXR 11/11/24: Findings continued to be suspicious for mild congestive heart failure. Slightly increased opacity in the medial right lung base could represent asymmetric edema versus mild focal pneumonia, new since prior examination.
Abd Xray 11/11/24: Moderate diffuse air distention of the colon suggesting a colonic ileus.
Renal U/S:
1. No sonographic evidence for hydronephrosis in either kidney.
2. Moderate chronic bilateral renal disease.
3. Mild to moderate diffuse thickening and trabeculation of the urinary bladder wall (either secondary to cystitis or chronic urinary bladder outlet obstruction).
Sepsis and bacteremia due to complicated UTI:
-cont Meropenem pending final Cx data as per ID
-s/p IVFs
-leukocytosis resolved
-fever curve improving
Acute hypoxemic respiratory failure:
-Chest x-ray from November 11, 2024 reviewed. I highly doubt the patient has pneumonia. He likely had aspiration pneumonitis. Overall acute hypoxemic respiratory failure is likely multifactorial due to acute aspiration pneumonitis and sepsis.
-note, possible acute HFpEF but I suspect this is less likely, home lasix on hold with hypotension and sepsis requiring volume resuscitation
Vomiting and Diarrhea:
-Abd Xray with colonic ileus
-rectal trumpet placed
-GI following
-ok for diet
Other problems:
Obesity due to excess calories
Generalized Weakness
PEGGY, likely OHS
Concern for Asthma
Hypokalemia, replete
GERD: cont PPI
HLD: cont statin
BRIAN, resolved with IVFs
Essential HTN: Holding home antihypertensives with hypotension
PAD s/p R AKA: cont ASA/statin/Pletal
Depression/anxiety: cont Cymbalta
Peripheral neuropathy: cont neurontin
BPH: cont Flomax
DM2: SSI/accuchecks
FULL/Heparin
Anticipated Discharge: > 48 hours
Subjective/Interval History
-
Date of Service: November 13, 2024
Pt c/o persistent diarrhea and abd discomfort. Denies CP/SOB.
Objective Data
-
Labs:
Laboratory Results
11/13/24
04:46
WBC 5.9
Hgb 11.8 L
Hct 34.5 L
Plt Count 116 L
Sodium 137
Potassium 3.2 L
Chloride 111 H
Carbon Dioxide 22
BUN 21 H
Creatinine 1.1
Glucose 100 H
Calcium 8.6
Vital Signs:
Vital Signs
Temp Pulse Resp BP Pulse Ox
98.4 F 101 25 119/56 97
11/13/24 03:09 11/13/24 06:00 11/13/24 06:00 11/13/24 06:00 11/13/24 06:00
I&O
11/12/24 11/13/24 11/14/24
06:59 06:59 06:59
Intake Total 1769 980 / 980
Output Total 3000 / 3000
Balance 1769 -2019
[2024-11-13] MEDS: SYMBICORT 160/4.5 MCG INHALER 2 PUFF INH (08:12)
[2024-11-13] MEDS: PEPCID 20 MG PO (08:24)
[2024-11-13] MEDS: FLOMAX 0.4 MG PO (08:24)
[2024-11-13] MEDS: HEPARIN 5000 UNITS SC ×2 (08:24→19:52)
[2024-11-13] MEDS: CYMBALTA DELAYED RELEASE 30 MG PO ×2 (08:24→19:52)
[2024-11-13] MEDS: ASPIR LOW (ENTERIC COATED) 81 MG PO (08:24)
[2024-11-13] MEDS: PLETAL 100 MG PO ×2 (08:24→19:52)
[2024-11-13] MEDS: NEURONTIN 300 MG PO ×3 (08:24→21:07)
[2024-11-13 09:07] LABS: Glucose - Point of Care 117 mg/dl (70-99)
[2024-11-13] MEDS: NOVOLOG FLEXPEN-LOW RESISTANCE SC ×3 (09:26→15:54)
--- NOTE | 2024-11-13 09:57 | W.PN.PUL3 ---
Today's Communication / Plan
-
- Resume Lasix at 20 mg Po daily
- Kcl 40 meq PO x 1
- Out patient follow up with Pulmonary clinic in 4-6 weeks. Antibiotics per ID service.
- Will sign off, please call as needed.
Assessment
-
Patient is a very pleasant 74-year-old gentleman with history of obstructive airway disease, hyperlipidemia, diabetes, congestive heart failure, peripheral vascular disease, who presented from a nursing facility with fever and generalized weakness.
Reported had episode of vomiting also earlier. Patient was noted to have a UTI and was admitted to the hospital on antibiotics. Subsequently blood cultures also became positive. No reported cough or wheezing. Patient was noted to have mild
hypoxia which improved with supplemental oxygen. Pulmonary consultation was requested for further input.
Patient reports history of questionable COPD however he has never smoked and I wonder if he has underlying asthma. Reports history of suspected sleep apnea but has not been on any PAP therapy at home. Does not use oxygen at baseline. During my
evaluation patient was not in any respiratory distress and was comfortably lying in bed.
#1. Acute hypoxic respiratory failure with RML pneumonia with Bacteremia and sepsis
- With reported vomiting prior to admission, aspiration pneumonia also in differential diagnosis
- Continue O2 support as needed to keep saturation above 90%, currently on 2 L and saturating 96%
- Agree with broad-spectrum antibiotic, ID service on case, currently switched to ceftriaxone
- Source of bacteremia appears to be UTI rather than pneumonia
- Arterial blood gas reviewed, no hypercapnia noted.
- Currently saturating 96% on 2 L
#2. PEGGY with suspected obesity hypoventilation syndrome, morbid obesity
- Patient reports prior workup for obstructive sleep apnea records not available for review. Has not been on any positive pressure therapy at night
- Patient awake and alert, ABG 7.44, 32, 71. Minimize sedating medications
#3. History of obstructive airway disease, suspect asthma
- Patient has never smoked and COPD appears to be unlikely
- Patient likely has under lying asthma instead. Continue Symbicort twice daily as ordered, as needed albuterol in addition
- Currently no wheezing on exam and patient does not seem to have acute exacerbation, hold off steroids for now
#4. Suspect heart failure with preserved ejection fraction
- Echo reviewed from earlier this month unremarkable. Patient does have left ventricular hypertrophy. BNP elevated at 1330, chest x-ray suggestive of mild vascular prominence concerning for pulmonary congestion
- Now that blood pressure is better, discontinued IV fluids, resumed low-dose diuretics 11/12.
- Monitor closely for any respiratory deterioration
Other medical diagnoses:
- UTI with bacteremia. Await culture and sensitivities. Continue antibiotics
- BRIAN vs CKD
- Hyperlipidemia
- Diabetes
Total time spent on this consultation/encounter __45__ minutes which includes review of history, physical exam, medications, laboratory data, personal review of imaging, extensive review of outpatient records, discussion with care team and
respiratory therapy.
Data:
ECHO 10/2024: Normal left ventricular chamber size. Normal left ventricular systolic
function. Left ventricular ejection fraction is 55-60% by visual assessment. No
gross regional wall motion abnormalities. Mild concentric left ventricular
hypertrophy. Normal diastolic function.
Normal right ventricular size and function.
No significant valvular pathology.
Subjective Data
-
Date of Service:
Date of Service: November 13, 2024
Objective Data
Data Reviewed
Vital Signs / I&O / Oxygen:
Vital Signs
Temp Pulse Resp BP Pulse Ox
98.4 F 96 20 119/56 94
11/13/24 03:09 11/13/24 08:14 11/13/24 08:14 11/13/24 06:00 11/13/24 08:14
Intake and Output
11/12/24 11/13/24 11/14/24
06:59 06:59 06:59
Intake Total 1770 / 1770 980 / 980
Output Total 3000 / 3000
Balance 1770 / 1770 -2019 /
SaO2 94
Nasal Cannula flow liters per 2
minute
Physical Exam
General: Comfortable
HEENT: Normocephalic
Cardiovascular: S1-S2
Respiratory: Clear and Non-Labored Respirations
GI: Soft
Neurology: Awake and Alert
Skin: Warm
Labs/Micro/Reports
Lab Data
11/13/24 04:46
11/13/24 04:46
Microbiology
11/10/24 20:33 Blood/Venous Blood Culture - Preliminary
Klebsiella pneumoniae
11/10/24 20:33 Blood/Venous Gram Stain - Preliminary
11/10/24 19:53 Blood/Venous Blood Culture - Preliminary
Klebsiella pneumoniae
11/10/24 19:53 Blood/Venous Gram Stain - Preliminary
11/10/24 20:33 Urine Urine Culture - Final
Klebsiella pneumoniae
11/11/24 13:54 Blood/Venous Blood Culture - Preliminary
No Growth in 24 hours- Final report to follow
11/11/24 12:44 Blood/Venous Blood Culture - Preliminary
No Growth in 24 hours- Final report to follow
11/11/24 15:48 Feces/Stool Stool Leukocytes - Final
11/11/24 03:22 Nose MRSA Screen - Final
No Methicillin Resistant Staphylococcus aureus isolated.
11/11/24 15:48 Feces/Stool C. difficile GDH Antigen & Toxins - Final
Negative for toxigenic C.difficile
11/10/24 20:33 Nasal Swab Influenza Types A & B ([place]) - Final
Negative for Influenza A & B, NAAT
Negative results must be combined with clinical observations
and patient history.
Nucleic Acid Amplification test (NAAT)performed on the
[employer] platform.
[2024-11-13] MEDS: LASIX 20 MG PO (11:27)
[2024-11-13 11:40] LABS: Glucose - Point of Care 100 mg/dl (70-99)
--- NOTE | 2024-11-13 12:10 | PTOTSP ---
Reviewed chart and noted pt transferred to IMU on 11/11 for higher level of care. PT and OT orders were not continued upon transfer. Will need updated PT and OT orders when stable to resume activity.
--- NOTE | 2024-11-13 12:22 | W.PN.ID1 ---
Date of Service
Date of Service: November 13, 2024
Today's Communication
-De-escalate meropenem (d3 ) to ceftriaxone.
Assessment / Plan
# Complicated symptomatic UTI
# Klebsiella pneumonia bacteremia x 2 sets
# Fever- trending down
# Leukocytosis - resolved
# Possible R aspiration PNA after emesis
#SNF ([facility]) resident
- Ucx Kleb pneumo
- Repeat bcx neg to date.
-De-escalate meropenem (d3 ) to ceftriaxone.
- Trend temps
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
Diabetes mellitus type 2
COPD/asthma
HLD
PAD
Neuropathy
Fibromyalgia
Hypertension
CHF
CKD
BPH
PEGGY
Depression/anxiety
Right AKA
Chief Complaint
-: UTI and Bacteremia
Subjective / Review of Systems
Feels OK.
Vital Signs / Physical Exam
Vital Signs
Vital Signs
Temp Pulse Resp BP Pulse Ox
98.1 F 97 24 138/56 92
11/13/24 07:55 11/13/24 12:00 11/13/24 12:00 11/13/24 12:00 11/13/24 12:17
Physical Exam
Constitutional: Comfortable and Obese
Cardiovascular: Regular Rate and S1/S2
Pulmonary: Clear
Gastrointestinal: Soft, Non Tender, Non Distended and Normal Bowel Sounds
Genito-Urinary: Negative CVA Tenderness
Extremities: Negative Edema
Neurological: AO x 3
Objective Data
Lab Data
Lab Results
11/13/24 04:46
11/13/24 04:46
Estimated Creat Clear 77 ml/min 11/13/24 04:46
Lactic Acid 1.4 mmol/L (0.7-2.0) 11/10/24 19:53
Total Bilirubin 1.3 mg/dl (0.2-1.3) 11/10/24 19:53
AST 31 U/L (17-59) 11/10/24 19:53
ALT 20 U/L (0-50) 11/10/24 19:53
Alkaline Phosphatase 77 U/L (38-126) 11/10/24 19:53
Most recent labs reviewed.
Micro Results:
11/11/24 15:48 Salmonella/Shigella Culture - Preliminary
Feces/Stool Culture in Progress
Campylobacter Culture - Preliminary
Culture in Progress
Shiga Toxin Test - Final
No E. coli Shiga Toxin 1 or 2 detected.
11/10/24 20:33 Blood Culture - Preliminary
Blood/Venous Klebsiella pneumoniae
Gram Stain - Preliminary
11/10/24 19:53 Blood Culture - Preliminary
Blood/Venous Klebsiella pneumoniae
Gram Stain - Preliminary
11/10/24 20:33 Urine Culture - Final
Urine Klebsiella pneumoniae
11/11/24 13:54 Blood Culture - Preliminary
Blood/Venous No Growth in 24 hours- Final report to follow
11/11/24 12:44 Blood Culture - Preliminary
Blood/Venous No Growth in 24 hours- Final report to follow
11/11/24 15:48 Stool Leukocytes - Final
Feces/Stool
11/11/24 03:22 MRSA Screen - Final
Nose No Methicillin Resistant Staphylococcus aureus isolated.
11/11/24 15:48 C. difficile GDH Antigen & Toxins - Final
Feces/Stool Negative for toxigenic C.difficile
11/10/24 20:33 Influenza Types A & B ([place]) - Final
Nasal Swab Negative for Influenza A & B, NAAT
Negative results must be combined with clinical observations
and patient history.
Nucleic Acid Amplification test (NAAT)performed on the
[employer] platform.
11/11/24 CXR: Findings continued to be suspicious for mild congestive heart failure. Slightly increased opacity in the medial right lung base could represent asymmetric edema versus mild focal pneumonia, new since prior examination.
11/10/24 Renal US: No sonographic evidence for hydronephrosis in either kidney.
2. Moderate chronic bilateral renal disease.
3. Mild to moderate diffuse thickening and trabeculation of the urinary bladder wall (either secondary to cystitis or chronic urinary bladder outlet obstruction).
[2024-11-13] MEDS: STERILE WATER FOR INJECTION 20 ML IV (14:34)
[2024-11-13] MEDS: ROCEPHIN 2000 MG IV (14:34)
[2024-11-13 16:04] LABS: Glucose - Point of Care 88 mg/dl (70-99)
--- NOTE | 2024-11-13 16:13 | PTCARENOTE ---
dental lab technician at bedside. Patient currently eating dinner. Patient refused to stop eating so ECHO could be performed by tech. dental lab technician reports she has many tests to do and cannot come back tonight and will need to be done tomorrow.
[2024-11-13] MEDS: IMODIUM 2 MG PO (17:13)
[2024-11-13 21:02] LABS: Glucose - Point of Care 101 mg/dl (70-99)
[2024-11-13] MEDS: MELATONIN 6 MG PO (21:07)
[2024-11-13] MEDS: LANTUS 0.05 UNITS SC (21:08)
[2024-11-13] MEDS: LIPITOR 80 MG PO (21:08)
--- NOTE | 2024-11-13 23:55 | PTCARENOTE ---
Pt able to take oral medications whole with water. CC fell off, incontinence care performed. SR-ST on CM. Pt with some tachypnea at times, denies SOB. Maintained on RA at this time. Pt does present with pressure injury behind b/l ears, protective
foams in place. Call prater within reach. Pt ringing appropriately.
[2024-11-14] VITALS (13 sets, daily range): BP systolic 115–172; BP diastolic 60–101; PULSE 98; O2SAT 95; BMI 36.3
[2024-11-14 05:42] LABS: % Basophils 0.2 % (0-2); % Eosinophils 5.8 % (0-6); % Immature Granulocytes 0.6 % (0-0.5); % Lymphocytes 18.2 % (20.5-51.1); % Monocytes 15.6 % (1.7-9.3); % Neutrophils 59.6 % (42.2-75.2); Absolute Eosinophils 0.3 10^3/uL (0-0.7); Absolute Monocytes 0.8 10^3/uL (0.1-0.6); Absolute Neutrophils 3.2 10^3/uL (1.4-6.5); Hematocrit 34.2 % (39.0-52.0); Mean Corp Hgb Conc. 35.1 g/dL (33.0-37.0); Mean Corpuscular Hgb 26.6 pg (27.0-31.0); Mean Corpuscular Volume 75.8 fL (80.0-94.0); Mean Platelet Volume 9.2 fL (7.4-10.4); Nucleated Red Blood Cells % 0 % (-); Platelet Count 146 10^3/uL (130-400); Red Blood Cell Count 4.51 10^6/uL (4.70-6.10); Red Cell Dist. Width 16.2 % (11.5-14.5); White Blood Cell Count 5.4 10^3/uL (4.8-10.8)
[2024-11-14 05:53] LABS: Blood Urea Nitrogen 19 mg/dl (9-20); Calcium 8.9 mg/dl (8.4-10.2); Carbon Dioxide 24 mmol/L (22-30); Chloride 109 mmol/L (98-107); Estimated Creatinine Clearance 93 ml/min; Glucose 100 mg/dl (70-99); Potassium 3.6 mmol/L (3.5-5.1); Sodium 138 mmol/L (135-145); eGFR > 60.00
[2024-11-14 07:42] LABS: Glucose - Point of Care 106 mg/dl (70-99)
--- NOTE | 2024-11-14 07:46 | W.PN.HOSP.TC ---
Today's Communication/Plan
-
see plan
Assessment / Plan
Assessment / Plan
74-year-old male from senior care with past medical history with hyperlipidemia, type 2 diabetes mellitus, CHF and peripheral artery disease, presented with fever and generalized weakness since last night, he also reported vomiting and diarrhea.
Gen: NAD, Awake and alert
Eyes: EOMI, PERRLA, no scleral icterus.
Neck: supple.
CV: tachy, reg rhythm, +S1/S2, no m/r/g.
Resp: CTAB, no rales, wheezes, or rhonchi.
Abd: +BS, soft, NT, ND
Skin: intact
Neuro: remains CN 2-12 intact, non-focal.
Psych: Normal mood and affect.
11/11/24 13:54 Blood/Venous Blood Culture - Preliminary
No Growth in 48 hours- Final report to follow
11/11/24 12:44 Blood/Venous Blood Culture - Preliminary
No Growth in 48 hours- Final report to follow
11/11/24 15:48 Feces/Stool Salmonella/Shigella Culture - Preliminary
Culture in Progress
11/11/24 15:48 Feces/Stool Campylobacter Culture - Preliminary
Culture in Progress
11/11/24 15:48 Feces/Stool Shiga Toxin Test - Final
No E. coli Shiga Toxin 1 or 2 detected.
11/10/24 20:33 Blood/Venous Blood Culture - Preliminary
Klebsiella pneumoniae
11/10/24 20:33 Blood/Venous Gram Stain - Preliminary
11/10/24 19:53 Blood/Venous Blood Culture - Preliminary
Klebsiella pneumoniae
11/10/24 19:53 Blood/Venous Gram Stain - Preliminary
11/10/24 20:33 Urine Urine Culture - Final
Klebsiella pneumoniae
11/11/24 15:48 Feces/Stool Stool Leukocytes - Final
11/11/24 03:22 Nose MRSA Screen - Final
No Methicillin Resistant Staphylococcus aureus isolated.
11/11/24 15:48 Feces/Stool C. difficile GDH Antigen & Toxins - Final
Negative for toxigenic C.difficile
11/10/24 20:33 Nasal Swab Influenza Types A & B ([place]) - Final
Negative for Influenza A & B, NAAT
Negative results must be combined with clinical observations
and patient history.
Nucleic Acid Amplification test (NAAT)performed on the
[employer] ID NOW platform.
CXR 11/11/24: Findings continued to be suspicious for mild congestive heart failure. Slightly increased opacity in the medial right lung base could represent asymmetric edema versus mild focal pneumonia, new since prior examination.
Abd Xray 11/11/24: Moderate diffuse air distention of the colon suggesting a colonic ileus.
Renal U/S:
1. No sonographic evidence for hydronephrosis in either kidney.
2. Moderate chronic bilateral renal disease.
3. Mild to moderate diffuse thickening and trabeculation of the urinary bladder wall (either secondary to cystitis or chronic urinary bladder outlet obstruction).
Sepsis and bacteremia due to complicated UTI:
-was on Meropenem, now on Rocephin as per ID
-s/p IVFs
-leukocytosis resolved
-fever has now resolved
Acute hypoxemic respiratory failure:
-Chest x-ray from November 11, 2024 reviewed. I highly doubt the patient has pneumonia. He likely had aspiration pneumonitis. Overall acute hypoxemic respiratory failure is likely multifactorial due to acute aspiration pneumonitis and sepsis.
-note, possible acute HFpEF but I suspect this is less likely, home lasix on hold with hypotension and sepsis requiring volume resuscitation
Vomiting and Diarrhea:
-Abd Xray with colonic ileus
-rectal trumpet had been placed
-GI following
-ok for diet
Other problems:
Obesity due to excess calories
Generalized Weakness
PEGGY, likely OHS
Concern for Asthma
Hypokalemia, resolved
GERD: cont PPI
HLD: cont statin
BRIAN, resolved with IVFs
Essential HTN: Holding home antihypertensives with hypotension
PAD s/p R AKA: cont ASA/statin/Pletal
Depression/anxiety: cont Cymbalta
Peripheral neuropathy: cont neurontin
BPH: cont Flomax
DM2: SSI/accuchecks
FULL/Heparin
Anticipated Discharge: 24 - 48 hours
Subjective/Interval History
-
Date of Service: November 14, 2024
Denies CP/SOB. Reports diarrhea has resolved.
Objective Data
-
Labs:
Laboratory Results
11/14/24
05:22
WBC 5.4
Hgb 12.0 L
Hct 34.2 L
Plt Count 146 D
Sodium 138
Potassium 3.6
Chloride 109 H
Carbon Dioxide 24
BUN 19
Creatinine 0.9
Glucose 100 H
Calcium 8.9
Vital Signs:
Vital Signs
Temp Pulse Resp BP Pulse Ox
98.1 F 94 22 146/101 95
11/14/24 02:59 11/14/24 06:00 11/14/24 06:00 11/14/24 06:00 11/14/24 04:00
I&O
11/13/24 11/14/24 11/15/24
06:59 06:59 06:59
Intake Total 980 / 980 480 / 480
Output Total 3000 / 3000 750 / 750
Balance -2020 / -2020 -270 / -270
--- NOTE | 2024-11-14 07:50 | PTCARENOTE ---
Pt AAOx3 AKA on R. WC bound at baseline. RA at this time. +2 LLe . PT for 2decho today
[2024-11-14] MEDS: SYMBICORT 160/4.5 MCG INHALER 2 PUFF INH (08:00)
[2024-11-14] MEDS: CYMBALTA DELAYED RELEASE 30 MG PO ×2 (08:21→20:07)
[2024-11-14] MEDS: LASIX 20 MG PO (08:21)
[2024-11-14] MEDS: NEURONTIN 300 MG PO ×3 (08:21→21:29)
[2024-11-14] MEDS: FLOMAX 0.4 MG PO (08:21)
[2024-11-14] MEDS: ASPIR LOW (ENTERIC COATED) 81 MG PO (08:21)
[2024-11-14] MEDS: PEPCID 20 MG PO (08:21)
[2024-11-14] MEDS: PLETAL 100 MG PO ×2 (08:21→20:07)
[2024-11-14] MEDS: NOVOLOG FLEXPEN-LOW RESISTANCE SC ×2 (10:05→12:33)
[2024-11-14] MEDS: HEPARIN 5000 UNITS SC ×2 (10:41→20:11)
[2024-11-14 12:30] LABS: Glucose - Point of Care 140 mg/dl (70-99)
--- NOTE | 2024-11-14 13:45 | CM ---
Patient transferred from IMU to Room 319-1.
--- NOTE | 2024-11-14 13:55 | PTCARENOTE ---
Received pt from U at 1345. Pt arrived on stretcher and was a 3 person ice puller. Pt is ax3, oriented to unit and room, and connected to teley box # 12. Pt has no current complaints, plan of care ongoing.
[2024-11-14] MEDS: STERILE WATER FOR INJECTION 20 ML IV (14:29)
[2024-11-14] MEDS: ROCEPHIN 2000 MG IV (14:29)
--- NOTE | 2024-11-14 14:39 | W.PN.ID1 ---
Date of Service
Date of Service: November 14, 2024
Today's Communication
- Continue ceftriaxone (d4)
- At time if dc, transition to cefdinir 300mg po bid through 11/24/24
Assessment / Plan
# Complicated symptomatic UTI
# Klebsiella pneumonia bacteremia x 2 sets
# Fever- resolved
# Leukocytosis - resolved
#SNF ([facility]) resident
- Ucx Kleb pneumo
- Repeat bcx neg to date.
- Continue ceftriaxone (d4)
- At time if dc, transition to cefdinir 300mg po bid through 11/24/24
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
Diabetes mellitus type 2
COPD/asthma
HLD
PAD
Neuropathy
Fibromyalgia
Hypertension
CHF
CKD
BPH
PEGGY
Depression/anxiety
Right AKA
Chief Complaint
-: UTI and Bacteremia
Subjective / Review of Systems
Feels improved.
Vital Signs / Physical Exam
Vital Signs
Vital Signs
Temp Pulse Resp BP Pulse Ox
98.4 F 101 19 137/72 96
11/14/24 14:01 11/14/24 14:01 11/14/24 14:01 11/14/24 14:01 11/14/24 14:01
Physical Exam
Constitutional: Comfortable and Obese
Cardiovascular: Regular Rate and S1/S2
Pulmonary: Clear
Gastrointestinal: Soft, Non Tender, Non Distended and Normal Bowel Sounds
Genito-Urinary: Negative CVA Tenderness
Extremities: Negative Edema
Neurological: AO x 3
Objective Data
Lab Data
Lab Results
11/14/24 05:22
11/14/24 05:22
Estimated Creat Clear 93 ml/min 11/14/24 05:22
Lactic Acid 1.4 mmol/L (0.7-2.0) 11/10/24 19:53
Total Bilirubin 1.3 mg/dl (0.2-1.3) 11/10/24 19:53
AST 31 U/L (17-59) 11/10/24 19:53
ALT 20 U/L (0-50) 11/10/24 19:53
Alkaline Phosphatase 77 U/L (38-126) 11/10/24 19:53
Most recent labs reviewed.
Micro Results:
11/11/24 13:54 Blood Culture - Preliminary
Blood/Venous No Growth in 72 hours- Final report to follow
11/11/24 12:44 Blood Culture - Preliminary
Blood/Venous No Growth in 72 hours- Final report to follow
11/10/24 20:33 Blood Culture - Final
Blood/Venous Klebsiella pneumoniae
Gram Stain - Final
11/11/24 15:48 Salmonella/Shigella Culture - Final
Feces/Stool No Salmonella, Shigella, Aeromonas or Plesiomonas species
isolated.
Campylobacter Culture - Final
No Campylobacter species isolated.
Shiga Toxin Test - Final
No E. coli Shiga Toxin 1 or 2 detected.
11/10/24 19:53 Blood Culture - Preliminary
Blood/Venous Klebsiella pneumoniae
Gram Stain - Preliminary
11/10/24 20:33 Urine Culture - Final
Urine Klebsiella pneumoniae
11/11/24 15:48 Stool Leukocytes - Final
Feces/Stool
11/11/24 03:22 MRSA Screen - Final
Nose No Methicillin Resistant Staphylococcus aureus isolated.
11/11/24 15:48 C. difficile GDH Antigen & Toxins - Final
Feces/Stool Negative for toxigenic C.difficile
11/10/24 20:33 Influenza Types A & B ([place]) - Final
Nasal Swab Negative for Influenza A & B, NAAT
Negative results must be combined with clinical observations
and patient history.
Nucleic Acid Amplification test (NAAT)performed on the
[employer] NOW platform.
11/11/24 CXR: Findings continued to be suspicious for mild congestive heart failure. Slightly increased opacity in the medial right lung base could represent asymmetric edema versus mild focal pneumonia, new since prior examination.
11/10/24 Renal US: No sonographic evidence for hydronephrosis in either kidney.
2. Moderate chronic bilateral renal disease.
3. Mild to moderate diffuse thickening and trabeculation of the urinary bladder wall (either secondary to cystitis or chronic urinary bladder outlet obstruction).
--- NOTE | 2024-11-14 14:55 | PTOTSP ---
pt currently requires supervision for supine, tolerated sitting for ~9.5 minutes. pt able to sit, eat meals while at EOB. no chair available on unit for pt as he completes a slide transfer to w/c. pt unable to stand, unable to complete transfer to
bedside commode. no further OT needs identified at this time, will sign off.
[2024-11-14 16:53] LABS: Glucose - Point of Care 153 mg/dl (70-99)
[2024-11-14] MEDS: NOVOLOG FLEXPEN-LOW RESISTANCE 1 UNITS SC (17:44)
[2024-11-14] MEDS: LIPITOR 80 MG PO (21:29)
[2024-11-14] MEDS: MELATONIN 6 MG PO (21:29)
[2024-11-14 21:46] LABS: Glucose - Point of Care 104 mg/dl (70-99)
[2024-11-14] MEDS: LANTUS 0.05 UNITS SC (21:47)
[2024-11-15 03:17] VITALS: BP 107/59
[2024-11-15 05:13] VITALS: BMI 35.8
--- NOTE | 2024-11-15 06:07 | PTCARENOTE ---
Pt's tele alarmed HR in 180s. Pt broke out of it very quickly, HR back down to 90s and Pt asymptomatic. PUBLIC SAFETY OFFICER notified, 0600 labs ordered. Plan of care ongoing.
[2024-11-15 06:56] LABS: Hematocrit 35.2 % (39.0-52.0); Hemoglobin 12.1 g/dL (13.0-18.0); Mean Corp Hgb Conc. 34.4 g/dL (33.0-37.0); Mean Corpuscular Hgb 26.5 pg (27.0-31.0); Mean Platelet Volume 8.9 fL (7.4-10.4); Platelet Count 147 10^3/uL (130-400); Red Blood Cell Count 4.57 10^6/uL (4.70-6.10); Red Cell Dist. Width 16.1 % (11.5-14.5); White Blood Cell Count 5.1 10^3/uL (4.8-10.8)
[2024-11-15 07:00] VITALS: BP 188/94
[2024-11-15] MEDS: SYMBICORT 160/4.5 MCG INHALER 2 PUFF INH (07:20)
[2024-11-15 07:22] LABS: Blood Urea Nitrogen 15 mg/dl (9-20); Calcium 8.6 mg/dl (8.4-10.2); Carbon Dioxide 20 mmol/L (22-30); Chloride 110 mmol/L (98-107); Estimated Creatinine Clearance 83 ml/min; Glucose 103 mg/dl (70-99); Magnesium 1.8 mg/dl (1.6-2.3); Potassium 3.7 mmol/L (3.5-5.1); Sodium 138 mmol/L (135-145); eGFR > 60.00
[2024-11-15] MEDS: FLOMAX 0.4 MG PO (07:42)
[2024-11-15] MEDS: PLETAL 100 MG PO (07:42)
[2024-11-15] MEDS: NEURONTIN 300 MG PO (07:42)
[2024-11-15] MEDS: ASPIR LOW (ENTERIC COATED) 81 MG PO (07:42)
[2024-11-15] MEDS: PEPCID 20 MG PO (07:42)
[2024-11-15] MEDS: HEPARIN 5000 UNITS SC (07:42)
[2024-11-15] MEDS: LASIX 20 MG PO (07:42)
[2024-11-15] MEDS: CYMBALTA DELAYED RELEASE 30 MG PO (07:42)
[2024-11-15] MEDS: NOVOLOG FLEXPEN-LOW RESISTANCE SC ×2 (07:51→11:52)
[2024-11-15 07:52] LABS: Glucose - Point of Care 98 mg/dl (70-99)
--- NOTE | 2024-11-15 08:23 | W.PN.HOSP.TC ---
Addendum entered and electronically signed by Federico Adorno MD 11/15/24 09:42:
Total time spent on d/c = 35 min. This included today's physical exam, progress note, review of laboratory and diagnostic data, preparation of discharge documents and prescriptions, and discussions about the pt's hospital course and discharge plan
with the patient and other medical research assistant involved in the patient's care.
Original Note:
Today's Communication/Plan
-
see plan
Assessment / Plan
Assessment / Plan
74-year-old male from [facility] with past medical history with hyperlipidemia, type 2 diabetes mellitus, CHF and peripheral artery disease, presented with fever and generalized weakness since last night, he also reported vomiting and diarrhea.
Gen: NAD, Awake and alert
Eyes: EOMI, PERRLA, no scleral icterus.
Neck: supple.
CV: RRR, +S1/S2, no m/r/g.
Resp: CTAB anteriorly, no rales, wheezes, or rhonchi.
Abd: +BS, soft, NT, ND
Skin: intact
Neuro: continues to remain CN 2-12 intact, non-focal.
Psych: Normal mood and affect.
11/11/24 13:54 Blood/Venous Blood Culture - Preliminary
No Growth in 72 hours- Final report to follow
11/11/24 12:44 Blood/Venous Blood Culture - Preliminary
No Growth in 72 hours- Final report to follow
11/10/24 20:33 Blood/Venous Blood Culture - Final
Klebsiella pneumoniae
11/10/24 20:33 Blood/Venous Gram Stain - Final
11/11/24 15:48 Feces/Stool Salmonella/Shigella Culture - Final
No Salmonella, Shigella, Aeromonas or Plesiomonas species
isolated.
11/11/24 15:48 Feces/Stool Campylobacter Culture - Final
No Campylobacter species isolated.
11/11/24 15:48 Feces/Stool Shiga Toxin Test - Final
No E. coli Shiga Toxin 1 or 2 detected.
11/10/24 19:53 Blood/Venous Blood Culture - Preliminary
Klebsiella pneumoniae
11/10/24 19:53 Blood/Venous Gram Stain - Preliminary
11/10/24 20:33 Urine Urine Culture - Final
Klebsiella pneumoniae
11/11/24 15:48 Feces/Stool Stool Leukocytes - Final
11/11/24 03:22 Nose MRSA Screen - Final
No Methicillin Resistant Staphylococcus aureus isolated.
11/11/24 15:48 Feces/Stool C. difficile GDH Antigen & Toxins - Final
Negative for toxigenic C.difficile
11/10/24 20:33 Nasal Swab Influenza Types A & B ([place]) - Final
Negative for Influenza A & B, NAAT
Negative results must be combined with clinical observations
and patient history.
Nucleic Acid Amplification test (NAAT)performed on the
[employer] ID NOW platform.
CXR 11/11/24: Findings continued to be suspicious for mild congestive heart failure. Slightly increased opacity in the medial right lung base could represent asymmetric edema versus mild focal pneumonia, new since prior examination.
Abd Xray 11/11/24: Moderate diffuse air distention of the colon suggesting a colonic ileus.
Renal U/S:
1. No sonographic evidence for hydronephrosis in either kidney.
2. Moderate chronic bilateral renal disease.
3. Mild to moderate diffuse thickening and trabeculation of the urinary bladder wall (either secondary to cystitis or chronic urinary bladder outlet obstruction).
Sepsis and bacteremia due to complicated UTI:
-was on Meropenem, now on Rocephin as per ID. On d/c transition to cefdinir 300mg PO BID through 11/24/24.
-s/p IVFs
-leukocytosis resolved
-fever has now resolved
Acute hypoxemic respiratory failure:
-Chest x-ray from November 11, 2024 reviewed. I highly doubt the patient has pneumonia. He likely had aspiration pneumonitis. Overall acute hypoxemic respiratory failure is likely multifactorial due to acute aspiration pneumonitis and sepsis.
-note, possible acute HFpEF but I suspect this is less likely, home lasix on hold with hypotension and sepsis requiring volume resuscitation.
-resolved, saturating well on RA
Essential HTN:
-now that hypotension is resolved, resume Norvasc and metoprolol
Vomiting and Diarrhea:
-Abd Xray with colonic ileus
-rectal trumpet had been placed
-GI following
-ok for diet
-now resolved
Other problems:
Obesity due to excess calories
Generalized Weakness
PEGGY, likely OHS
Concern for Asthma
Hypokalemia, resolved
GERD: cont PPI
HLD: cont statin
BRIAN, resolved with IVFs
PAD s/p R AKA: cont ASA/statin/Pletal
Depression/anxiety: cont Cymbalta
Peripheral neuropathy: cont neurontin
BPH: cont Flomax
DM2: SSI/accuchecks
FULL/Heparin
Medically cleared for d/c. Case management aware.
Anticipated Discharge: Today
Subjective/Interval History
-
Date of Service: November 15, 2024
Denies CP/SOB.
Objective Data
-
Labs:
Laboratory Results
11/15/24
06:30
WBC 5.1
Hgb 12.1 L
Hct 35.2 L
Plt Count 147
Sodium 138
Potassium 3.7
Chloride 110 H
Carbon Dioxide 20 L
BUN 15
Creatinine 1.0
Glucose 103 H
Calcium 8.6
Vital Signs:
Vital Signs
Temp Pulse Resp BP Pulse Ox
98.0 F 99 16 188/94 97
11/15/24 07:00 11/15/24 07:42 11/15/24 07:21 11/15/24 07:42 11/15/24 07:00
I&O
11/14/24 11/15/24 11/16/24
06:59 06:59 06:59
Intake Total 480 / 480 960 / 960
Output Total 750 / 750 700 / 700
Balance -270 / -270 260 / 260
[2024-11-15] MEDS: NORVASC 10 MG PO (09:06)
[2024-11-15] MEDS: TOPROL XL 50 MG PO (09:06)
--- NOTE | 2024-11-15 09:30 | CM ---
Addendum entered by Edna Victoria 11/15/24 09:50:
12:30 transport set-notified son Elver & Kristyn campos
Original Note:
Met with patient at bedside
tt from hospitalist - discharge today
IMM explained & signed. In chart
Kristyn enriquezison updated
PLAN: [facility]
Report [phone]

transportation forms on chart
[2024-11-15 11:00] VITALS: BP 140/77
--- NOTE | 2024-11-15 13:38 | W.DCSUMMARY ---
Discharge Summary
Discharge Data
Date of Admission: 11/10/24
Date of Discharge: 11/15/24
-
Pending Results: No
Hospital Course
Primary diagnoses:
Sepsis and bacteremia due to complicated urinary tract infection
Acute kidney injury new
Acute ileus
Acute hypoxic respiratory failure
Aspiration pneumonitis
Secondary diagnoses:
Obesity due to excess calories
Generalized Weakness
Obstructive sleep apnea
Concern for Asthma
Hypokalemia
Gastroesophageal flux disease
Hyperlipidemia
Peripheral arterial disease s/p R [id number] amputation
Depression
Anxiety
Peripheral neuropathy
Benign prostatic hypertrophy
Type 2 diabetes mellitus
Essential hypertension
Consultants:
Infectious disease
Pulmonary
Gastroenterology
Imaging:
CXR 11/11/24: Findings continued to be suspicious for mild congestive heart failure. Slightly increased opacity in the medial right lung base could represent asymmetric edema versus mild focal pneumonia, new since prior examination.
Abd Xray 11/11/24: Moderate diffuse air distention of the colon suggesting a colonic ileus.
Renal U/S:
1. No sonographic evidence for hydronephrosis in either kidney.
2. Moderate chronic bilateral renal disease.
3. Mild to moderate diffuse thickening and trabeculation of the urinary bladder wall (either secondary to cystitis or chronic urinary bladder outlet obstruction).
74-year-old male presented with chief complaint of fevers on H&P done on admission. Hospital course by problem list:
Sepsis and bacteremia due to complicated urinary tract infection: The patient met sepsis criteria on admission with fever, tachycardia, and source being urinary tract infection. The patient was on meropenem and then transitioned to Rocephin. Urine
culture grew Klebsiella. Blood cultures were no growth. At the time of discharge she was discharged on cefdinir through November 24, 2024. He received IV fluids and his acute kidney injury resolved with IV fluids. His leukocytosis and fever resolved.
Acute hypoxemic respiratory failure: The patient developed acute hypoxemic respiratory failure. Chest x-ray from November 11, 2024 reviewed. I highly doubt the patient has pneumonia (previously considered). He likely had aspiration pneumonitis.
Overall acute hypoxemic respiratory failure was likely multifactorial due to acute aspiration pneumonitis and sepsis. Of note, possible acute HFpEF but I suspect this was less likely. Home lasix was held with hypotension and sepsis and the patient
required volume resuscitation. The patient's acute hypoxemic respiratory failure resolved and he was saturating well on room air at the time of discharge.
Acute ileus: The patient had symptoms of vomiting and diarrhea. Abdominal x-ray showed colonic ileus. The patient had a rectal trumpet placed. He was seen in consultation by GI and was cleared for diet. His vomiting and diarrhea resolved and he
was tolerating a diet at the time of discharge
Discharge Plan
-
Patient Disposition: Assisted Living
Discharge Diagnosis/Procedures: Sepsis and bacteremia due to complicated urinary tract infection
Condition: Fair
Diet: Diabetic, Carb Controlled
Activity: With assistance
Driving Restrictions: No driving
Blood Work: BMP and CBC in 1 week, prescription from PCP
Referrals:
Chan Jama MD [Active, Pulmonary Medicine] - in four to six weeks
UNKNOWN - PT DOES,NOT KNOW [Family Provider] - in less than 1 week
Prescriptions:
New
gabapentin 300 mg Capsule
300 mg PO TID Qty: 0 0RF
furosemide 20 mg Tablet
20 mg PO DAILY Qty: 0 0RF
Insulin Glargine Lantus [Lantus] 5 UNITS
Subcutaneous Insulin Syringe [Syringe-Insulin] 0 UNIT
As Directed mls/hr SC HS
Ordered By: Federico Adorno MD
Last Taken: 11/14/24 21:47 0.05 mls
cefdinir 300 mg capsule
300 mg PO BID Qty: 20 0RF
Rx Instructions:
Through 11/24/24
Continued
cilostazol 100 mg Tablet
100 mg PO BID
atorvastatin 80 mg Tablet
80 mg PO HS
acetaminophen [Tylenol] 325 mg Tablet
325 mg PO Q8HPRN PRN (Reason: mild pain)
acetaminophen [Tylenol] 325 mg Tablet
650 mg PO Q4H PRN (Reason: mild pain/temp>100F)
acetaminophen [Tylenol] 325 mg Tablet
650 mg PO Q6HPRN MDD 3000 mg/24hrs PRN (Reason: mild pain)
loperamide 2 mg Capsule
2 mg PO DIRECTED MDD 8 mg PRN (Reason: loose stool)
Patient Comments:
11/10/2024, as needed for diarrhea after each loose stool.
nitroglycerin 0.3 mg Tablet, Sublingual
0.3 mg SUBLINGUAL Q5-15M PRN (Reason: chest pain)
metoprolol succinate 50 mg Tablet Extended Release 24 Hr
50 mg PO DAILY
ondansetron HCl 4 mg Tablet
4 mg PO Q8H PRN (Reason: nausea/vomiting)
therapeutic multivitamin Tablet
1 tab PO DAILY
melatonin 3 mg Tablet
6 mg PO HS
aspirin 81 mg Tablet,Delayed Release (Dr/Ec)
81 mg PO DAILY
guaifenesin 100 mg/5 mL Liquid
200 mg PO Q6HPRN PRN (Reason: cough)
magnesium hydroxide [Milk of Magnesia] 400 mg/5 mL Suspension
30 ml PO [id number] PRN (Reason: if no BM in 3 days)
tamsulosin [Flomax] 0.4 mg Capsule
0.4 mg PO DAILY
amlodipine 10 mg Tablet
10 mg PO DAILY
Patient Comments:
11/10/2024, hold for SBP<110.
insulin aspart U-100 [Novolog U-100 Insulin aspart] 100 unit/mL Solution
1 sliding scale dose SC DIRECTED
Rx Instructions:
11/10/2024, if 150-200 = 2 units; 201-250 = 3 units; 251-300 = 4 units; 301-350 = 5 units; 351-400 = 7 units.
bisacodyl [Dulcolax (bisacodyl)] 10 mg Suppository
10 mg GA DAILY PRN (Reason: if no BM by morning of 4th day)
urea 10 % Cream
1 applic TOPICAL HS
albuterol sulfate 90 mcg/actuation Hfa Aerosol Inhaler
2 puff INHALATION R Q4HPRN PRN (Reason: sob/wheezing)
loratadine 10 mg Tablet
10 mg PO DAILY
duloxetine 30 mg Capsule,Delayed Release(Dr/Ec)
30 mg PO BID
budesonide-formoterol [Symbicort] 160-4.5 mcg/actuation Hfa Aerosol Inhaler
2 puff INHALATION R DAILY
omeprazole 20 mg Tablet,Delayed Release (Dr/Ec)
20 mg PO DAILY
lubiprostone [Amitiza] 8 mcg Capsule
8 mcg PO BID
Mounjaro 2.5 mg/0.5 mL Pen Injector
2.5 mg SC WE
Discontinued
furosemide 40 mg Tablet
40 mg PO DAILY
gabapentin 600 mg Tablet
600 mg PO TID
oxycodone 5 mg Capsule
5 mg PO Q4H PRN (Reason: moderate-severe pain)
insulin glargine [Lantus Solostar U-100 Insulin] 100 unit/mL (3 mL) insulin pen
18 unit SC HS
Discharge Orders:
Discharge Patient (As Directed); Ordered 11/15/24
Ordered By: Federico Adorno
Discharge Date and Time
Discharge Date/Time: 11/15/24 13:00
Print Language: SLOVENIAN
== END 2024-11-15 13:00 | DRG 871 ==
LOC: 3 WEST ACU 23:07
PROVIDERS: Hospitalist; Nurse Practitioner Family; Registered Nurse; ADMITTING PHYSICIAN Internal Medicine; ATTENDING PHYSICIAN Internal Medicine; CONSULT PHYSICIAN Internal Medicine; CONSULT PHYSICIAN Internal Medicine Gastroenterology; CONSULT PHYSICIAN Internal Medicine Infectious Disease; EMERGENCY PHYSICIAN Emergency Medicine
DX: A41.9 Sepsis, unspecified organism (principal); I50.31 Acute diastolic (congestive) heart failure; J69.0 Pneumonitis due to inhalation of food and vomit; J96.01 Acute respiratory failure with hypoxia; J15.0 Pneumonia due to Klebsiella pneumoniae; N39.0 Urinary tract infection, site not specified; N17.9 Acute kidney failure, unspecified; K56.7 Ileus, unspecified; I13.0 Hypertensive heart and chronic kidney disease with heart failure and stage 1 through stage 4 chronic kidney disease, or unspecified chronic kidney disease; J44.0 Chronic obstructive pulmonary disease with (acute) lower respiratory infection; G47.33 Obstructive sleep apnea (adult) (pediatric); E87.6 Hypokalemia; E11.51 Type 2 diabetes mellitus with diabetic peripheral angiopathy without gangrene; Z89.611 Acquired absence of right leg above knee; F41.9 Anxiety disorder, unspecified; F32.A Depression, unspecified; N40.0 Benign prostatic hyperplasia without lower urinary tract symptoms; N18.9 Chronic kidney disease, unspecified; E11.22 Type 2 diabetes mellitus with diabetic chronic kidney disease; Z79.4 Long term (current) use of insulin; Z79.899 Other long term (current) drug therapy; Z79.51 Long term (current) use of inhaled steroids; E78.00 Pure hypercholesterolemia, unspecified; D63.1 Anemia in chronic kidney disease; M79.7 Fibromyalgia; E11.40 Type 2 diabetes mellitus with diabetic neuropathy, unspecified; E66.01 Morbid (severe) obesity due to excess calories; Z68.35 Body mass index [BMI] 35.0-35.9, adult; K21.9 Gastro-esophageal reflux disease without esophagitis; I95.89 Other hypotension; Z79.02 Long term (current) use of antithrombotics/antiplatelets; Z79.82 Long term (current) use of aspirin; Z87.440 Personal history of urinary (tract) infections; Z11.52 Encounter for screening for COVID-19
CPT/HCPCS: 36600; 71046; 74018; 76770; 80048; 80053; 81003; 81015; 82805; 82962; 83036; 83605; 83735; 83880; 84132; 84484; 85025; 85027; 87040; 87045; 87046; 87070; 87077; 87086; 87154; 87186; 87205; 87324; 87427; 87449; 87502; 87811; 89055; 93005; 93306; 94640; 96374; 97163; 97167; 97530; 99285